=== PATIENT | male | born 1940 | race Caucasian/White ===

== ENCOUNTER 2018-07-22 18:10 | Inpatient (IN) | payer OTHER ==
[~2018-07-22] VITALS: Ht 177.8 cm; Wt 108.9 kg
--- NOTE | ~2018-07-22 | SPIROMETRY ---
[facility] [place] [address] SPIROMETRY Name: ARBOLEDAJUAN M Room #: 212-P [facility] IN .R.#: [id number] ������������������ Admission: 07/22/18 ������������������ Attend Phys: Calvin Marques MD Discharge: 07/30/18 ������������������ Date of : 42 Report #: [id number] THIS REPORT FOR: //name// >> SPIROMETRY: (BTPS) Height: in cm Weight: lbs kg Exam Date: PRE-RX POST-RX PRED BEST %PRED BEST %PRED %CHG FVC LITERS . . . . . . FEV1 LITERS . . . . . . FEV1/FVC % . . . . . . BNW11-86% L/Sec . . . . . . PEF L/SEC . . . . . . FEF50/FIF50 UNITLESS . . . . . . >> INTERPRETATION/IMPRESSION: [facility] DATE OF SERVICE: 07/30/2018 SPIROMETRY: FEV1 is 1.37 liters (50%), FVC is 2.73 (65%), FEV1/FVC is 50%. Postbronchodilator therapy with no significant change. 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 ��������������������������������������������� ���������������������������������������� By: ��������������������������������������������� Mart Bowman MD /nt
--- NOTE | ~2018-07-22 | EKG ---
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
--- NOTE | ~2018-07-22 | SPIROMETRY ---
[facility] [place] [address] SPIROMETRY Name: JUAN ARBOLEDA Room #: 212-P [facility] IN M.R.#: [id number] ������������������ Admission: 07/22/18 ������������������ Attend Phys: Calvin Marques MD Discharge: 07/30/18 ������������������ Date of : 42 Report #: [id number] THIS REPORT FOR: //name// COPIES FOR: >> SPIROMETRY: (BTPS) Height: 70 in cm Weight: 240 lbs kg Exam Date: 07/30/18 PRE-RX POST-RX PRED BEST %PRED BEST %PRED %CHG FVC LITERS . 4.22 . 2.73 . 65 . 2.69 . 64 . -1 FEV1 LITERS . 2.75 . 1.37 . 50 . 1.37 . 50 . 0 FEV1/FVC % . 67 . 50 . 75 . 51 . 76 . 2 JGI33-07% L/Sec . 2.38 . 0.50 . 21 . 0.52 . 22 . 5 PEF L/SEC . 8.06 . 4.36 . 54 . 4.58 . 57 . 5 FEF50/FIF50 UNITLESS . <1.00 . . . . . ��������������������������������������������� ���������������������������������������� By: ��������������������������������������������� Mart Bowman MD /CD
[~2018-07-22 18:10] MED LIST: ACETAMINOPHEN650 M5 PO; ALDACTONE25 MG PO; AMOXICILLIN 25250 M2 PO; ASPIRIN EC81 M1 PO; AUGMENTIN 875-1 EACH PO; BISOPROLOL FUMA10 MG PO; CHLORTHALIDONE25 MG PO; CLONIDINE HCL0.3 M2 PO; COMBIVENT INH; D-20002000 UNIT PO; HYTRIN 5 M5 MG/1 CAP PO; LANTUS SQ; LISINOPRIL40 MG PO; NEXIUM40 MG PO; NOVOLIN R100 UNIT/3 SQ; POTASSIUM20 PO; TOPROL XL25 MG PO; TUMS CHEWA500 MG/11 PO; ZOCOR 20 MG TAB20 M1 PO
[2018-07-22 18:14] VITALS: BP 81/46
[2018-07-22 18:41] LABS: ABSOLUTE NEUTROPHILS 11.3 thou/uL (1.4-8.2); BASOPHILS 0.3 % (0.0-2.0); EOSINOPHILS 0.4 % (0.0-3.0); HEMATOCRIT 53.2 % (42.0-52.0); HEMOGLOBIN 17.7 gm/dL (14.0-18.0); LYMPHOCYTES 13.9 % (24.0-44.0); MCH 29.9 pg (26.0-34.0); MCHC 33.3 g/dL (28.0-37.0); PLATELET COUNT 230 thou/uL (150-400); POLYS 77.4 % (36.0-66.0); RBC 5.91 mil/uL (4.50-6.00); RDW 13.3 % (10.5-14.5); WBC 14.6 thou/uL (4.0-11.0)
[2018-07-22 18:46] LABS: CALCIUM 9.5 mg/dL (8.5-10.1); CREATININE 1.7 mg/dL (0.7-1.3); POTASSIUM 3.6 mmol/L (3.5-5.1)
[2018-07-22 18:54] LABS: TROPONIN-I 0.17 ng/mL (<0.06)
[2018-07-22] MEDS ORDERED: NOVOLIN R100 UNIT/3 SUBQ (18:56)
[2018-07-22] MEDS ORDERED: NOVOLIN R100 UNIT/1 SUBQ (18:57)
[2018-07-22] MEDS ORDERED: FLOMAX0.4 MG PO (18:59)
[2018-07-22 19:45] VITALS: BP 122/64
[2018-07-22 20:00] LABS: CHOLESTEROL 120 mg/dL (<200); HDL CHOLESTEROL 43 mg/dL (>40); LDL CHOLESTEROL 44 mg/dL (<100); TC:HDL 2.8 Ratio (Not establshd); TRIGLYCERIDE 169 mg/dL (<150); VLDL 34 mg/dL (<40)
[2018-07-22 20:01] LABS: SERUM ASSESSMENT Clear
[2018-07-22 21:00] VITALS: BP 133/79
--- NOTE | 2018-07-23 03:35 | NUR ---
ASSESSMENTS CHARTED. ARRIVED ON UNIT FROM ED SHORTLY AFTER SHIFT CHANGE. HAD ARRIVED IN [facility], RECEIVED ONE SHOCK. PATIENT ON AMIODARONE, RECEIVED SUPPLIMENTS OF POTASSIUM AND MAGNESIUM. PLAN OF CARE TO CONTINUE TREATMENTS AND RECEIVE PICC LINE.
[2018-07-23 03:55] LABS: CREATININE 1.4 mg/dL (0.7-1.3); POTASSIUM 3.4 mmol/L (3.5-5.1)
[2018-07-23 04:22] LABS: HEMATOCRIT 47.1 % (42.0-52.0); HEMOGLOBIN 15.9 gm/dL (14.0-18.0); MCHC 33.7 g/dL (28.0-37.0); RBC 5.3 mil/uL (4.50-6.00); RDW 13.2 % (10.5-14.5); WBC 10.2 thou/uL (4.0-11.0)
[2018-07-23 04:33] VITALS: BP 122/62
[2018-07-23 05:05] VITALS: BP 121/70
[2018-07-23 07:08] VITALS: BP 120/67
--- NOTE | 2018-07-23 10:20 | CATHLAB ---
[facility] [place] [address] INVASIVE PROCEDURE REPORT Name: ROBLESJUAN Blake Room #: 212-P [facility] IN ..#: [id number] ������������� Admission: 07/22/18 ������������� Attend Phys: Calvin Borges Discharge: ��� ������������� ��� Date of : 42 Date of Service: 07/23/18 1019 �� Report #: [id number] �������� ��������������������������������������������[id number] THIS REPORT FOR: //name// APPROVED REPORT Study performed: 07/23/2018 07:37:40 Patient Details Patient Status: In-Patient Room #: The patient is a 77 year-old male Event Personnel Ed Johnson Space Systems Operations Craftsman, Philip Bartlett, Rosalba Levine RTR, Christi Lee Tiffany RN bridge painter helper Performed Left Heart Cath Coronaries, Bypass Grafts [id number] CCORCABG KATHRYN Place w/wo Plasty Single CIRC [id number] Indication Chest pain Risk Factors Dysplipidemia , Hypertension, Diabetes Previous Procedures/Diagnoses Previous CABG Procedure Narrative The Right Groin^ was infiltrated with 1% Lidocaine subcutaneous anesthesia. A PINNACLE 6FR Sheath #[id number] sheath was inserted into the RFA^. Coronary angiography was performed using coronary diagnostic catheters. The right coronary system was accessed and visualized with a JR4 catheter. The left coronary system was accessed and visualized with a JL4 catheter. The left ventricle was accessed and visualized with a PIGTAIL catheter. Left ventriculogram was performed in WAN projection. Closure device was deployed with a Fr MYNXGRIP 6/7F #[id number]. Hemostasis was obtained with manual pressure following sheath removal without any complications. The patient tolerated the procedure well and there were no complications associated with the procedure. There was no hematoma. Intraoperative Conscious Sedation Sedation start time: 746 Case end Time: [facility] [address] [place] [address] INVASIVE PROCEDURE REPORT Name: JUAN ARBOLEDA Room #: 212-P [facility] IN [facility]#: [id number] ������������� Admission: 07/22/18 ������������� Attend Phys: Calvin Borges Discharge: ��� ������������� ��� Date of : 42 Date of Service: 07/23/18 1019 �� Report #: [id number] �������� ��������������������������������������������[id number] Fentanyl 50 mcg Versed 1 mg Fluoro Time: 20.00 minutes Dose: DAP 41301.30 cGycm2 3070 mGy Contrast Type and Amount: Visipaque 305 ml Diagnostic Cath Left Main Mild distal left main plaquing LAD Occluded proximal LAD Widely patent and angiographically normal left internal mammary to the midportion of the LAD. Excellent runoff into a large LAD system. Diagonal 1 Widely patent sequential saphenous vein graft to a high diagonal branch then OM1, OM2, and OM3 Circumflex Severe calcific 95% proximal stenosis feeding a single mid-distal marginal branch OM1 Relatively small first and second marginal branches OM3 Third marginal branch was moderately large There was severe proximal disease in the marginal vessel not allowing retrograde perfusion of the terminal marginal branch Right Coronary Proximal right coronary artery occlusion Patent vein graft to the distal right coronary, posterior descending and posterolateral branches R PDA Moderate-sized posterior descending with mild plaquing RPLV Posterior lateral branch with mild plaquing Left Ventriculography The left ventricle is mildly dilated in size with abnormal contractility. The left ventricular ejection fraction is estimated to be 40-45%. Left ventricular wall motion abnormalities are present. There is no mitral insufficiency. Severe dysfunction involving the base and mid portions of the inferior wall Hemodynamics The aortic pressure is 122/52 mmHg with a mean of 78 mmHg. The left ventricular pressure is 120/13 mmHg with a mean of mmHg. The left ventricular end diastolic pressure is 18 mmHg. PCI Technique Lesion Anticoagulation was achieved with Heparin, Integrilin. Patient was preloaded with Plavix. Percutaneous coronary intervention was performed on the proximal circumflex artery segment. The lesion stenosis prior to intervention was 99% with JIL 3 flow. A LAUNCHER 6FR EBU 3.5 #[id number] Guide Catheter was used to engage the ostium. A [facility] [place] [address] INVASIVE PROCEDURE REPORT Name: JUAN ARBOLEDA Room #: 212-P [facility] IN M.R.#: [id number] ������������� Admission: 07/22/18 ������������� Attend Phys: Calvin Borges Discharge: ��� ������������� ��� Date of : 42 Date of Service: 07/23/18 1019 �� Report #: [id number] �������� ��������������������������������������������[id number] Luge Wire .014 x 182CM #[id number] Interventional Guidewire was used to cross the lesion. BALLOON DILATION A Balloon catheter Euphora RX 2.0 x 15 #[id number] was inserted and inflated up to 18.00atm for 62seconds. Repeat angiography revealed the following post-dilatation results: moderate residual stenosis. Initially the 3.5 mm balloon would not traverse the bulky stenosis. Sequentially larger balloons were used until ultimately the stent could be deployed A 3.5 X 12 Euphora was deployed for 5 sec @ 8 tiffany; balloon popped. A third balloon, NC-Trek, 3.5 x 15, was deployed for 32 sec @ 12 tiffany. STENT DEPLOYMENT A drug-eluting stent RESOLUTE RICKEY RX 3.5 X 15 #[id number] was inserted and inflated up to 21.00atm for 27seconds. Repeat angiography revealed the following post-stent deployment results: The same 3.5 x 15 mm NC balloon use used to post dilate the stent. Additional Inflation: 16atm for 46seconds. POST STENT DEPLOYMENT BALLOON DILATION A Balloon catheter TREK NC RX 3.5 X 15 #[id number] was inserted and inflated up to 21.00atm for 27seconds. Final angiography reveals 0 % stenosis with JIL 3 flow. Conclusion 1. Moderate left ventricular dysfunction with inferior wall hypokinesis. Ejection fraction 40-45% 2. Severe multivessel coronary disease 3. Patent sequential SVG to Diag1, OM1, OM2, and OM3 4. Patent sequential SVG to PDA and PL branches 5. Patent REESE to LAD 6. Severe proximal Cx disease feeding incompletely protected distal OM branch, Cx stented wtih 3.5 x 15 Resolute KATHRYN. Recommendations Daily ASA with Plavix for at least one year Cardiac Rehabilitation Referral Aggressive Medical Therapy Medications Administered ÓSCAR Inhibitor (any) Aspirin (any) Beta Elsie (any) [facility] [address] [place] [address] INVASIVE PROCEDURE REPORT Name: JUAN ARBOLEDA Room #: 212-P ADM IN M.R.#: [id number] ������������� Admission: 07/22/18 ������������� Attend Phys: Calvin Borges Discharge: ��� ������������� ��� Date of : 42 Date of Service: 07/23/18 1019 �� Report #: [id number] �������� ��������������������������������������������[id number] Statin (any) Clopidogrel ��������������������������������������������� <ELECTRONICALLY SIGNED> ���������������������������������������� By: Ed Johnson MD, FACC ��������������������������������������������� 07/23/18 1019 1019 1019 Ed Johnson MD, FACC /INF
--- NOTE | 2018-07-23 12:34 | NUR ---
CHECKED ON PT THIS AM AND HE WAS GONE FROM THE ROOM, CALLED HIS NURSE TO SEE IF THE PT WOULD STILL BE NEEDING A PICC FOR AMIODERONE. SHE IS CALLING THE MD TO CLARIFY.
--- NOTE | 2018-07-23 13:00 | 2DMMODE ---
[facility] [address] [address] 2 D/M-MODE ECHOCARDIOGRAM Name: JUAN ARBOLEDA Room #: 212-P ADM IN M.R.#: [id number] ������������� Admission: 07/22/18 ������������� Attend Phys: Calvin Borges Discharge: ��� ������������� ��� Date of : 42 Date of Service: 07/23/18 1300 �� Report #: [id number] �������� ��������������������������������������������[id number] THIS REPORT FOR: //name// APPROVED REPORT Study performed: 07/23/2018 10:24:07 EXAM: Comprehensive 2D, Doppler, and color-flow Echocardiogram Patient Location: Bedside Room #: 212 Status: routine BSA: 2.26 HR: 66 bpm BP: 120/67 mmHg Rhythm: Irregular Other Information Study Quality: Adequate Indications V-Tach. Status post PCI. Hx: CABG, ISCM, DM, HTN, HLP. 2D Dimensions RVDd: 38.17 mm IVSd: 10.10 (7-11mm) LVOT Diam: 22.35 (18-24mm) LVDd: 60.38 mm PWd: 9.79 (7-11mm) Ascending Ao: 36.62 (22-36mm) LVDs: 47.14 (25-40mm) Aortic Root: 37.73 mm Volumes Left Atrial Volume (Systole) Single Plane 4CH: 92.02 mL Single Plane 2CH: 82.52 mL LA ESV Index: 41.00 mL/m2 Aortic Valve AoV Peak Abiel.: 1.46 m/s AO Peak Gr.: 8.49 mmHg LVOT Max P.11 mmHg LVOT Max V: 1.01 m/s CHLOÉ Vmax: 2.73 cm2 Mitral Valve E/A Ratio: 0.8 MV Decel. Time: 184.99 ms MV E Max Abiel.: 0.88 m/s [facility] [place] [address] [place] [address] 2 D/M-MODE ECHOCARDIOGRAM Name: JUAN ARBOLEDA Room #: 212-P [facility] IN .R.#: [id number] ������������� Admission: 07/22/18 ������������� Attend Phys: Calvin Borges Discharge: ��� ������������� ��� Date of : 42 Date of Service: 07/23/18 1300 �� Report #: [id number] �������� ��������������������������������������������[id number] MV A Abiel.: 1.13 m/s MV PHT: 53.65 ms IVRT: 89.97 ms Pulmonary Valve PV Peak Abiel.: 1.33 m/s PV Peak Gr.: 7.05 mmHg Pulmonary Vein P Vein S: 0.47 m/s P Vein D: 0.30 m/s P Vein S/D Ratio: 1.57 Tricuspid Valve TR Peak Abiel.: 2.31 m/s RAP Estimate: 5.00 mmHg TR Peak Gr.: 21.33 mmHg PA Pressure: 26.00 mmHg Left Ventricle Left ventricle is mildly dilated. Moderate basal septal hypertrophy is present. Left ventricular systolic function is moderately decreased. Hypokinesis base of inferior wall and inferoseptum. LVEF is 35-40%. Mild diastolic dysfunction is present (impaired relaxation pattern). Right Ventricle The right ventricle is normal size. Right ventricle is mildly hypokinetic. Atria Left atrium is dilated. Right atrium is dilated. Aortic Valve The aortic valve is mildly calcified. No aortic regurgitation is present. There is no aortic valvular stenosis. Mitral Valve Mild mitral annular calcification. Mild mitral regurgitation. No evidence of mitral valve stenosis. Tricuspid Valve The tricuspid valve is normal in structure. Trace tricuspid regurgitation. Estimated PAP is 25-30mmHg. Pulmonic Valve Pulmonic valve is not well visualized. There is no pulmonic valvular regurgitation. [address] [address] 2 D/M-MODE ECHOCARDIOGRAM Name: JUAN ARBOLEDA Room #: 212-P [facility] IN M.R.#: [id number] ������������� Admission: 07/22/18 ������������� Attend Phys: Calvin Borges Discharge: ��� ������������� ��� Date of : 42 Date of Service: 07/23/18 1300 �� Report #: [id number] �������� ��������������������������������������������[id number] Great Vessels Aortic root measures at the upper limits of normal. The ascending aorta is normal in size. IVC is normal in size and collapses >50% with inspiration. Pericardium There is no pericardial effusion. <Conclusion> Left ventricular systolic function is moderately decreased. Hypokinesis base of inferior wall and inferoseptum. LVEF is 35-40%. Mild diastolic dysfunction Both atria are dilated. The aortic valve is mildly calcified. No aortic regurgitation or stenosis Mild mitral annular calcification. Mild mitral regurgitation. Trace tricuspid regurgitation. Estimated pulmonary artery pressure of 25-30mmHg. There is no pericardial effusion. ��������������������������������������������� <ELECTRONICALLY SIGNED> ���������������������������������������� By: Ed Johnson MD, FACC ��������������������������������������������� 07/23/18 1300 1300 1300 Ed Johnson MD, FACC /INF
[2018-07-23 15:03] LABS: MAGNESIUM 1.6 mg/dL (1.8-2.4); POTASSIUM 4.1 mmol/L (3.5-5.1)
[2018-07-23 15:58] VITALS: BP 132/77
--- NOTE | 2018-07-23 16:30 | NUR ---
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 MEDS PER MAY - NO CO'S OF PAIN OR NAUSEA - ALBERTINA DIET AND FLUIDS. PT GROIN AND VSS POST PROCEDURE. HAS BEEN UP TO THE BATHROM - GROIN HAS BEEN STABLE. AMMIO CONTINUES TO INFUSE AND PO AMMIO TO BE GIVEN K+ REPLACED NORMAL WITH REDRAW - MAG LOW AT 1.6 WILL SUPPLEMENT PER PROTOCOL. PT TO HAVE PACER AND ICD PLACED ON SUNDAY. SEEN BY DOCTOR LAURENT TODAY. NO CO'S AT THE PRESENT TIME - FAMILY AT BEDSIDE.
--- NOTE | 2018-07-23 17:04 | EKG ---
[address] [place] [address] ELECTROCARDIOGRAM REPORT Name: ROBLESJUAN Hayden Room #: 212-P ADM IN M.R.#: [id number] ������������������ Admission: 07/22/18 ������������������ Attend Phys: Calvin Marques Discharge: ������������������ Date of : 42 Report #: [id number] ����������������������������������������������������������������� [id number] THIS REPORT FOR: //name// [facility] ED Test Date: 2018-07-22 Test Time: 18:22:05 Pat Name: JUAN ARBOLEDA Department: Room: [facility] Gender: M Montessori Paraprofessional: ARASELI : 1940 Requested By: Rohith Smith Order Number: [id number] MD: Ed Johnson Measurements Intervals [place] Rate: 212 P: 123 [place]: 100 QRS: -41 QRSD: 153 T: 135 QT: 268 QTc: 504 Interpretive Statements Ventricular tachycardia Compared to ECG 12/13/2010 11:04:22 Sinus rhythm no longer present Electronically Signed On 07-23-2018 17:04:00 CDT by Ed Johnson [email or web address] ��������������������������������������������� <ELECTRONICALLY SIGNED> ���������������������������������������� By: Ed Johnson MD, [facility] ��������������������������������������������� 07/23/18 1704 21 21 Ed Johnson MD, FAC /EPI
--- NOTE | 2018-07-23 17:05 | EKG ---
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 : 1940 Requested By: Rohith Smith Order Number: [id number] MD: Ed Johnson Measurements Intervals [place] Rate: 96 P: 136 [place]: 182 QRS: -143 QRSD: 179 T: 37 QT: 460 QTc: 582 Interpretive Statements Sinus or ectopic atrial rhythm Multiple ventricular premature complexes Inferior infarct, old Right bundle branch block ST depr, consider ischemia, anterolateral lds Compared to ECG 12/13/2010 11:04:22 ventricular tachycardia no longer present Electronically Signed On 07-23-2018 17:04:53 CDT by Ed Johnson [email or web address] ��������������������������������������������� <ELECTRONICALLY SIGNED> ���������������������������������������� By: Ed Johnson MD, [facility] ��������������������������������������������� 07/23/18 1704 1845 1845 Ed Johnson MD, [facility] /EPI
--- NOTE | 2018-07-23 17:10 | EKG ---
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 : 1940 Requested By: Ed Johnson Order Number: [id number] MD: Ed Johnson Measurements Intervals [place] Rate: 70 P: 80 [place]: 240 QRS: -105 QRSD: 170 T: 26 QT: 459 QTc: 496 Interpretive Statements Sinus rhythm Multiple ventricular premature complexes Prolonged [place] interval Right bundle branch block Inferior infarct, old Compared to ECG 12/13/2010 11:04:22 ST and T wave abnormality less pronounced Electronically Signed On 07-23-2018 17:10:24 CDT by Ed Johnson [email or web address] ��������������������������������������������� <ELECTRONICALLY SIGNED> ���������������������������������������� By: Ed Johnson MD, [facility] ��������������������������������������������� 07/23/18 1710 0740 0740 Ed Johnson MD, [facility] /EPI
--- NOTE | 2018-07-23 17:13 | EKG ---
[address] [place] [address] ELECTROCARDIOGRAM REPORT Name: JUAN ARBOLEDA Hayden Room #: 212- ADM IN M.R.#: [id number] ������������������ Admission: 07/22/18 ������������������ Attend Phys: Calvin Marques Discharge: ������������������ Date of : 42 Report #: [id number] ����������������������������������������������������������������� [id number] THIS REPORT FOR: //name// [facility] Test Date: 2018-07-23 Test Time: 10:20:53 Pat Name: JUAN ARBOLEDA Department: Room: 212 P Gender: M Public Health Worker: Sasha MAYORGA : 1940 Requested By: Ed Johnson Order Number: [id number] MD: Ed Johnson Measurements Intervals [place] Rate: 69 P: 64 [place]: 240 QRS: -91 QRSD: 171 T: 30 QT: 505 QTc: 541 Interpretive Statements Sinus rhythm Prolonged [place] interval Right bundle branch block Inferior infarct, old Compared to ECG 12/13/2010 11:04:22 Premature ventricular complexes no longer present Electronically Signed On 07-23-2018 17:13:44 CDT by Ed Johnson [email or web address] ��������������������������������������������� <ELECTRONICALLY SIGNED> ���������������������������������������� By: Ed Johnson MD, [facility] ��������������������������������������������� 07/23/18 1713 1020 1020 Ed Johnson MD, [facility] /EPI
[2018-07-23 20:35] VITALS: BP 113/62
[2018-07-23 23:05] LABS: GLYCOHEMOGLOBIN (HGB A1C) 8.2 % (4.8-5.6)
[2018-07-24 00:47] VITALS: BP 128/53
--- NOTE | 2018-07-24 01:22 | NUR ---
ASSESSMENTS CHARTED. SPOKE WITH DR. HERRERA WHO WANTED THE AMIODARONE TO CONTINUE PAST THE NORMAL 18 HOUR RUN TIME. NEW ORDER PLACED. PATIENT WAS IN THE UNSTACKER TODAY AND RECEIVED A STENT TO THE CIRC. ACCESS SITE IS CLEAN DRY INTACT AND SOFT. PLAN OF CARE TO RECEIVE PACEMAKER ON SUNDAY.
[2018-07-24 04:25] LABS: HEMATOCRIT 44.4 % (42.0-52.0); HEMOGLOBIN 14.8 gm/dL (14.0-18.0); MCH 29.8 pg (26.0-34.0); MCHC 33.3 g/dL (28.0-37.0); MCV 89.6 fL (80.0-100.0); RBC 4.96 mil/uL (4.50-6.00); RDW 13.5 % (10.5-14.5); WBC 9.1 thou/uL (4.0-11.0)
[2018-07-24 04:44] LABS: ALBUMIN 2.9 g/dL (3.4-5.0); CALCIUM 8.2 mg/dL (8.5-10.1); CREATININE 1.2 mg/dL (0.7-1.3); MAGNESIUM 1.7 mg/dL (1.8-2.4); POTASSIUM 3.9 mmol/L (3.5-5.1); TOTAL BILIRUBIN 0.9 mg/dL (<0.1-1.0); TOTAL PROTEIN 5.8 g/dL (6.4-8.2)
[2018-07-24 04:47] LABS: TROPONIN-I 14.55 ng/mL (<0.06)
[2018-07-24 05:33] VITALS: BP 120/57
[2018-07-24 07:27] VITALS: BP 125/62
[2018-07-24 11:53] VITALS: BP 106/44
[2018-07-24 16:14] VITALS: BP 110/56
--- NOTE | 2018-07-24 18:04 | NUR ---
ASSESSMENT CHARTED - MEDS PER MAR - NO CO'S OF PAIN OR NAUSEA. ALBERTINA DIET AND FLUIDS. ACCUCHECKS CHARTED - COVERED PER SSI. PT AMBULATED IN THE HALLS TODAY - ON ROOM AIR WITH AMBULATION PT DROPPED TO 88% PLACE ON 2 L AND SAT WAS 95% PT TO HAVE PACER/ICD PLACED TOMORROW - PERMIT SIGNED - TO HAVE HIBICLENS SHOWER THIS EVENING. ARM ON RIGHT SLIGHLY SORE FROM WHERE AMIO WAS INFUSING - PLACED WARM AND THEN COOL COMPRESS ON AREA AND PATIENT STATES IT FEELS MUCH BETTER. NO CO'S AT THE PRESENT TIME.
[2018-07-24 19:35] VITALS: BP 102/60
[2018-07-25 04:14] LABS: ALBUMIN 2.8 g/dL (3.4-5.0); CALCIUM 8.4 mg/dL (8.5-10.1); CREATININE 1.2 mg/dL (0.7-1.3); POTASSIUM 3.8 mmol/L (3.5-5.1); TOTAL BILIRUBIN 1.3 mg/dL (<0.1-1.0); TOTAL PROTEIN 5.8 g/dL (6.4-8.2)
[2018-07-25 04:20] VITALS: BP 126/69
--- NOTE | 2018-07-25 04:22 | NUR ---
ASSUMED PT CARE AT 1899. VSS. PT A&0X4. AT AROUND 2054, PT WENT INTO SUSTAINED VTACH, HE WAS A&0 [place] IT WITH JUST COMPLAINTS OF DIZZYNESS. SCHEDULED PO AMIODARONE GIVEN AT 2107, DIRECTOR IMAGING NOTIFED; CALL DEFERED TO CARDIOLOGY, DR HERRERA WAS ON THE FLOOR AT THIS TIME SO HE SAW PT, GAVE ORDERS FOR 300MG IV AMIO, THEN ANOTHER 150MG AMIO AT 2131. 2MG OF VERSED GIVEN AT 2144, 200J SHOCK ADMINISTERED AT 2146, PT CONVERTED TO SR. AMIO DRIP STARTED AT APPROX 2129 AT 33ML/HR THEN TITRATED DOWN TO 16.7ML/HR AFTER 6 HOURS (AT 0330 AM). NS RUNNING AT 125ML/HR. NEW IV PLACED IN R HAND. PT IS TABLE, NO COMPLAINTS OF PAIN, OR DIZZINESS, HE IS SR ON THE MONITOR, HAS BEEN NPO SINCE MIDNIGHT FOR ICD PLACEMENT TODAY. WILL CONTINUE TO MONITOR PER POC.
[2018-07-25 04:24] LABS: ABSOLUTE NEUTROPHILS 9.6 thou/uL (1.4-8.2); BASOPHILS 0.2 % (0.0-2.0); HEMATOCRIT 43.3 % (42.0-52.0); HEMOGLOBIN 14.3 gm/dL (14.0-18.0); LYMPHOCYTES 11.9 % (24.0-44.0); MCH 29.6 pg (26.0-34.0); MCV 89.7 fL (80.0-100.0); MONOCYTES 9.1 % (1.0-8.0); PLATELET COUNT 170 thou/uL (150-400); POLYS 77.8 % (36.0-66.0); RBC 4.83 mil/uL (4.50-6.00); RDW 13.4 % (10.5-14.5); WBC 12.3 thou/uL (4.0-11.0)
[2018-07-25 07:25] VITALS: BP 134/60
--- NOTE | 2018-07-25 08:15 | HC ---
[facility] [place] [address] CONSULTATION Name: JUAN ARBOLEDA Room #: 212-P ADM IN M.R.#: [id number] Admission: 07/22/18 ������������������ Attend Phys: Calvin Marques Discharge: ������������������ Date of : 42 Report #: [id number] THIS REPORT FOR: //name// CC: Ed Atkins REASON FOR CONSULTATION: Syncope, palpitations. HISTORY OF PRESENT ILLNESS: The patient is a 77-year-old gentleman with 7-vessel bypass surgery at [facility] in 2006. He has a history of prior myocardial infarction around the time of his bypass. He did have several stenting procedures leading up to the bypass, although he has had nothing since. Today after taking a nap, he got up and felt very lightheaded. He checked his blood sugar, which was 67. He ate several peanut butter sandwiches, although his palpitations and near syncope persisted. His drove him to the Emergency Department where he was found to be in a wide complex monomorphic tachycardia consistent with ventricular tachycardia. He was shocky with an initial blood pressure of 80/76 with associated diaphoresis and breathlessness. He was given Versed and underwent urgent defibrillation. He currently is awake, alert and feels much better. He denies symptoms similar to this previously. No chest heaviness, pressure or ischemic type symptoms. He reports no recent imaging or stress testing. He does follow through [facility]. Blood pressure and blood sugar readings have been reasonably well controlled. No issues or problems related to his pharmacologic regimen. No recent medicine changes. Of particular note, he was hospitalized at [facility] several days ago with a small-bowel obstruction. A CAT scan suggested an abdominal wall hernia responsible for the bowel obstruction. Surgical therapy was not discussed. He was told of having "abnormal enzymes." He did not see a wire rigger at that time. Further details are unclear, records have been requested. ALLERGIES: HE IS ALLERGIC TO NIASPAN, METOPROLOL GAVE HIM TERRIBLE DREAMS. MEDICATIONS: Include chlorthalidone 25 mg daily, omeprazole 40 mg daily, insulin, potassium 20 mEq daily, Zocor 20 mg daily, Flomax 0.4 mg daily. PAST MEDICAL HISTORY: His past history and medical records have been reviewed and include a history of diverticulitis with hemicolectomy and colostomy formation and then takedown colostomy with reattachment, bypass surgery 7-vessel in 2006, hypertension, diabetes, dyslipidemia. SOCIAL HISTORY: He is a former smoker, he quit 20 years ago. He is a former drinker, not recently. He is . FAMILY HISTORY: Notable for mother with premature coronary artery disease. Multiple siblings with diabetes. [address] [address] CONSULTATION Name: JUAN ARBOLEDA Room #: 212-P [facility] IN M.R.#: [id number] Admission: 07/22/18 ������������������ Attend Phys: Calvin Marques Discharge: ������������������ Date of : 41 Report #: [id number] REVIEW OF SYSTEMS: All systems negative except as that noted above. PHYSICAL EXAMINATION: GENERAL: Reveals a pleasant gentleman who is alert, in no distress. VITAL SIGNS: Blood pressure is 122/64, heart rate of 90 and regular. He is afebrile, 5 feet 10 inches tall, 242 pounds. HEENT: There are neither xanthelasma, subcutaneous xanthomata, oral mucosal or digital cyanosis or kyphoscoliosis present. CHEST: Clear to auscultation and percussion. CARDIOVASCULAR: Regular rate and rhythm with normal S1, S2. Heart sounds are distant. ABDOMEN: Soft, obese, nontender. EXTREMITIES: Without cyanosis, clubbing or edema. Radial pulses are 2+. NEUROLOGIC: He is alert with a nonfocal exam. LABORATORY DATA: Sodium 140, potassium 3.6, creatinine 1.7, glucose 303. Troponin 0.17. White count 14.6, hemoglobin 17, hematocrit 53 and platelet count 230. Chest x-ray, minor atelectasis at the right base, cardiomegaly. EKG, monomorphic ventricular tachycardia, post-cardioversion sinus rhythm with first degree AV block, right bundle branch block and prior inferior infarct. IMPRESSION: 1. Sustained monomorphic ventricular tachycardia with collapse, requiring urgent cardioversion. 2. Ischemic cardiomyopathy. 3. Recent small-bowel obstruction; abdominal wall hernia. 4. Dyslipidemia. 5. Coronary artery disease with remote 7-vessel bypass. 6. Hypertension. 7. Diabetes. 8. Chronic kidney disease; nephropathy. RECOMMENDATIONS: 1. Intravenous amiodarone. 2. Supplement potassium and magnesium. 3. Coronary angiography. This procedure was discussed in detail including its associated risks. 4. Echocardiogram with Doppler. 5. EP evaluation and ICD placement for monomorphic VT, likely related to prior infarct and scar. I have discussed these issues with the patient and family and the Emergency Department staff. Care has been coordinated. [facility] [address] [place] [address] CONSULTATION Name: JUAN ARBOLEDA Room #: 212-P ADM IN M.R.#: [id number] Admission: 07/22/18 ������������������ Attend Phys: Calvin Marques Discharge: ������������������ Date of : 41 Report #: [id number] Critical care time 18:22 to 19:52; 90 minutes. ��������������������������������������������� <ELECTRONICALLY SIGNED> ���������������������������������������� By: Ed Johnson MD, FACC ��������������������������������������������� 07/25/18 0815 01 1231 Ed Johnson MD, FACC /nt
--- NOTE | 2018-07-25 09:34 | EKG ---
[place] [address] [facility] [employer] [place] [address] ELECTROCARDIOGRAM REPORT Name: ROBLESJUAN Hayden Room #: 212-P ADM IN M.R.#: [id number] ������������������ Admission: 07/22/18 ������������������ Attend Phys: Calvin Marques Discharge: ������������������ Date of : 41 Report #: [id number] ����������������������������������������������������������������� [id number] THIS REPORT FOR: //name// [facility] Test Date: 2018-07-24 Test Time: 07:25:25 Pat Name: JUAN ARBOLEDA Department: Room: 212 P Gender: M 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 : 1940 Requested By: Ed Johnson Order Number: [id number] MD: Ed Johnson Measurements Intervals [place] Rate: 70 P: 51 WA: 245 QRS: -86 QRSD: 174 T: 11 QT: 477 QTc: 515 Interpretive Statements Sinus rhythm Prolonged [place] interval Right bundle branch block Inferior infarct, old Compared to ECG 07/23/2018 10:20:53 No significant change was found Electronically Signed On 07-25-2018 9:34:36 CDT by Ed Johnson [email or web address] ��������������������������������������������� <ELECTRONICALLY SIGNED> ���������������������������������������� By: Ed Johnson MD, [facility] ��������������������������������������������� 07/25/18 0934 4 4 Ed Johnson MD, [facility] /EPI
--- NOTE | 2018-07-25 09:46 | EKG ---
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 Per Diem: Hayden VIRK : 1940 Requested By: Jacinto Vaughan Order Number: [id number] MD: Ed Johnson Measurements Intervals [place] Rate: 58 P: 51 WA: 280 QRS: -85 QRSD: 177 T: -1 QT: 516 QTc: 507 Interpretive Statements Sinus rhythm Prolonged [place] interval Right bundle branch block Inferior infarct, old Compared to ECG 07/23/2018 10:20:53 No significant change was found Electronically Signed On 07-25-2018 9:45:47 CDT by Ed Johnson [email or web address] ��������������������������������������������� <ELECTRONICALLY SIGNED> ���������������������������������������� By: Ed Johnson MD, [facility] ��������������������������������������������� 07/25/18 0945 01 01 Ed Johnson MD, [facility] /EPI
--- NOTE | 2018-07-25 09:52 | EKG ---
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: ADRIEL : 1940 Requested By: Ed Johnson Order Number: [id number] MD: Ed Johnson Measurements Intervals [place] Rate: 70 P: 55 CA: 292 QRS: -75 QRSD: 181 T: 21 QT: 479 QTc: 517 Interpretive Statements Sinus rhythm Prolonged [place] interval Inferior infarct, old Right bundle branch block Compared to ECG 07/23/2018 10:20:53 No significant change was found Electronically Signed On 07-25-2018 9:51:58 CDT by Ed Johnson [email or web address] ��������������������������������������������� <ELECTRONICALLY SIGNED> ���������������������������������������� By: Ed Johnson MD, [facility] ��������������������������������������������� 07/25/18 0951 4 4 Ed Johnson MD, [facility] /EPI
--- NOTE | 2018-07-25 10:52 | NUR ---
#14FR INDWELLING ARMANDO CATH PLACED W/O DIFF W IMMED RETURN YELLOW URINE. PT ALBERTINA WELL. SECURED TO LEG. UNABLE TO PLACE #16FR WHEN ATTEMPTED FIRST. PT STATES HE HAS NO IDEA ABOUT HIS PROSTATE (? ENLARGED).--VW
[2018-07-25 11:30] VITALS: BP 190/65
--- NOTE | 2018-07-25 11:39 | NUR ---
VASCULAR ACCESS TEAM CONSULTED FOR PICC PLACEMENT. PT'S LABS,MEDS,HISTORY ORDER AND CONSENT VERIFIED. DISCUSSED BENEFITS AND RISKS WITH PT,VERBALIZED UNDERSTANDING. PT WAS PREPPED AND DRAPED FOR MAX BARRIER PRECAUTIONS. KRISTINA BASILIC WAS WIDELY PATENT WITH USG,1% LIDOCAINE GIVEN SQ. 5FR DL POWER PICC TRIMMED TO 45CM INSERTED TO 0CM. PICC SECURED. STAT CXR ORDERED.
--- NOTE | 2018-07-25 12:56 | NUR ---
Cm assessment completed with the pt yesterday at bedside. He was a&ox4 and lives independently with his . He has steps inside his home to the bedroom and the basement. He drives short distances. His pcp is listed as Dr. Crenshaw but he normally just sees his managed care nurse Dr. Mitchell. He has a cane at home. No other dme in place. Pt is on O2 at this time. CM role introduced. Will follow along should home o2 be indicated.
--- NOTE | 2018-07-25 13:22 | NUR ---
picc released for immediate use per protocol to rosendo GREGORIO. cxr confirmed placement
[2018-07-25 15:30] VITALS: BP 150/61
--- NOTE | 2018-07-25 16:51 | NUR ---
ASSESSMENT CHARTED - DR MCCALL TO SEE PATIENT THIS AM - D/C FLUIDS - PICC LINE TO BE INSERTED FOR AMIO DRIP - LAB ORDERED - IV LASIX GIVEN - PT HAD ARMANDO PLACED ORDERED - UNABLE TO INSERT 16 0R 18 ABLE TO INSERT 14 WELSH - ARMANDO PATENT AND DRAINING. PT SLEEPY THIS AM EASILY AWOKEN - PT TAKEN TO EP THIS AND HAD PACER AND ICD PLACED - VSS POST PROCEDURE - PT AWAKE - ALBERTINA DIET AND FLUIDS - AMMIO INFUSING PER PICC - NO CO'S OF PAIN OR NAUSEA. INCISION C/D/I. NO CO'S AT THE PRESENT TIME.
[2018-07-25 20:32] VITALS: BP 147/56
[2018-07-26] VITALS (7 sets, daily range): BP systolic 113–138; BP diastolic 51–67
--- NOTE | 2018-07-26 05:30 | NUR ---
ASSUMED PT CARE AT 1900. VSS. PT A&0X4. DENIES PAIN, NAUSEA OR ANY FORM OF DISCOMFORT. PT WAS SR ALL NIGHT ON THE MONITOR. HE SLEPT WELL OVER NIGHT, HE INITIALLY STATED BEING SCARED OF THE EFFECTS OF THE ICD AND SCARED THAT [facility]. SOME EDUCATION WAS GIVEN TO HIM BY MYSELF AND I TOLD HIM THAT THE CARDIAC REHAB NURSE WOULD VISIT WITH HIM THIS AM AND GIVE HIM MORE EDUCATION. PT WAS REASSURED, HE IS STABLE, CALM, FOR NOW, WILL CONTINUE TO MONITOR PER POC.
--- NOTE | 2018-07-26 08:11 | NUR ---
PT OFF UNIT TO [facility].
--- NOTE | 2018-07-26 08:22 | EKG ---
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 : 1940 Requested By: Ed Johnson Order Number: [id number] MD: Erlin Licea Measurements Intervals [place] Rate: 62 P: 76 IL: 261 QRS: -83 QRSD: 183 T: 53 QT: 540 QTc: 549 Interpretive Statements Sinus rhythm Prolonged [place] interval Right bundle branch block Compared to ECG 07/25/2018 07:25:45 Myocardial infarct finding no longer present Electronically Signed On 07-26-2018 8:22:09 CDT by Erlin Licea [email or web address] ��������������������������������������������� <ELECTRONICALLY SIGNED> ���������������������������������������� By: Erlin Licea MD ��������������������������������������������� [address]4821 8 8 Erlin Licea MD /KUMAR
--- NOTE | 2018-07-26 08:32 | NUR ---
PT RETURN FROM [facility]
--- NOTE | 2018-07-26 16:49 | NUR ---
No discharge anticipated this weekend. Pt getting iv amino with transition to oral over the weekend. Earliest dc is anticipated for Sunday. Weaning o2. will follow along should he need home o2 arranged at dc.
--- NOTE | 2018-07-26 18:38 | NUR ---
NOTICED PT'S RIGHT ARM A BIT SWOLLEN AND PT STATED THAT IT ACHED SOME WHAT. CONTACT DR. ROSARIO TO INFORM OF THIS FINDING AND INSTRUCTED TO DISCONTINUE PICC LINE RIGHT UPPER EXTREMITY. PT WAS ABLE TO HAVE BM TODAY AND WORKED WITH PT/OT. WILL CONTININUE TO ASSESS.
--- NOTE | 2018-07-27 04:16 | NUR ---
PT ALERT AND ORIENTED. DENIES PAIN, NAUSEA, VOMITING OR DIARRHEA. HAD 2 BMs DURING THE SHIFT. RIGHT UA PICC PULLED DURING THE DAY. RIGHT ARM STILL APPEAR SHOLLEN AND REDISH. OTHERWISE DENIES PAIN. ON 3L O2, SATS > 90. NEW IVs START, LAC AND LEFT HAND. PT ON PO AND IV AMIO. PLAN TO TRANSITION TODAY TO COMPLETE PO AMIO. NO EPISODES OF VTACH. SENIOR SALES CONSULTANT FOLLOWING WITH DC PLANS. WILL CONTINUE TO FOLLOW POC.
[2018-07-27 04:55] VITALS: BP 155/63
[2018-07-27 05:05] LABS: MAGNESIUM 1.7 mg/dL (1.8-2.4); POTASSIUM 3.1 mmol/L (3.5-5.1)
[2018-07-27 07:20] VITALS: BP 116/48
[2018-07-27 11:30] VITALS: BP 143/58
[2018-07-27 15:50] VITALS: BP 147/65
--- NOTE | 2018-07-27 18:15 | NUR ---
ASSUMED CARE OF PT AT 0645. ALBERTINA PACER. KEEP ON AMIO IV AND PO PER CARDIOLOGY. INCREASE COREG. FAMMILY AT BEDSIDE. NEEDS TO BE REMINDED TO KEEP LEFT ARM DOWN. SHOULD WEAR IMMOBILIZER HS. HELD AC INSULIN AT DINNER DUE TO LOW BG. PROGRESSING TOWARD PLAN OF CARE.
[2018-07-27 20:42] VITALS: BP 149/73
[2018-07-28 04:12] VITALS: BP 163/83
[2018-07-28 04:19] LABS: CALCIUM 8.8 mg/dL (8.5-10.1); POTASSIUM 3.1 mmol/L (3.5-5.1)
--- NOTE | 2018-07-28 05:53 | NUR ---
PT A0 X4. ON AMIO DRIP, NO EPISODE OF VTACH RECORDED RATE CONTOLLED. APACED. ICD/PACER PLACED ON THE . SITE CLEAN DRY AND INTACT. PT REPORTS APNEA EPISODES. WOULD LIKE TO TRY CPAP. WILL CONTINUE TO FOLLOW POC.
[2018-07-28 07:53] VITALS: BP 159/83
[2018-07-28 11:50] VITALS: BP 157/81
--- NOTE | 2018-07-28 13:29 | EKG ---
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: SUMANTH : 1940 Requested By: Ed Johnson Order Number: [id number] MD: Ed Johnson Measurements Intervals [place] Rate: 60 P: MI: 276 QRS: -94 QRSD: 181 T: 47 QT: 563 QTc: 563 Interpretive Statements Atrial-paced complexes Prolonged [place] interval Right bundle branch block Inferior infarct, age indeterminate Compared to ECG 07/26/2018 07:29:05 Atrial pacing is now present Electronically Signed On 07-28-2018 13:29:18 CDT by Ed Johnson [email or web address] ��������������������������������������������� <ELECTRONICALLY SIGNED> ���������������������������������������� By: Ed Johnson MD, [facility] ��������������������������������������������� 07/28/18 1329 0711 0 Ed Johnson MD, [facility] /EPI
[2018-07-28 16:00] VITALS: BP 157/81
[2018-07-28 16:20] VITALS: BP 148/73
--- NOTE | 2018-07-28 18:14 | NUR ---
ASSUMED CARE AT SHIFT CHANGE, ALERT AND ORIENTED X4. FORGETFUL AT TIMES. BP SLIGHTLY ELEVATED, AND APACED ON THE MONITOR. AMIO DRIP AT 16.7ML/HR AND HR MAITAINED 60/HR. AND WILL CONTINUE WITH POC.
[2018-07-28 20:31] VITALS: BP 148/65
[2018-07-29 03:41] LABS: CALCIUM 8.6 mg/dL (8.5-10.1); POTASSIUM 3.2 mmol/L (3.5-5.1)
[2018-07-29 03:47] VITALS: BP 139/61
--- NOTE | 2018-07-29 04:53 | NUR ---
PT RESTING QUIETLY IN ROOM THRU THE NOC, RT PLACED PT ON CPAP AROUND MNOC, PT TOOK IT OFF AT 0400 DESATED TO 78 PLACEDBACK ON 2L NC SAT CAME BACK UP TO 94%, NO C/O PAIN, INCISION REMAINS CDI, WILL CON'T TO MONITOR PER PPOC.
[2018-07-29 07:15] VITALS: BP 153/75
--- NOTE | 2018-07-29 09:12 | NUR ---
Nutrition: assess d/t LOS. Pt admitted for cardiomyopathy; hx of CAD, HTN, HLD, DM. Plan is for gentle diuresis. Pt reports decent appetite and UBW of 240 lbs (no recent wt change). Consider low nutrition risk.
[2018-07-29] MEDS ORDERED: PACERONE 200 M200 M1 PO (09:57)
[2018-07-29 11:15] VITALS: BP 140/68
--- NOTE | 2018-07-29 14:31 | P ---
[facility] [address] [address] PROCEDURE REPORT Name: JUAN ARBOLEDA Room #: 212-P [facility] IN M.R.#: [id number] Admission: 07/22/18 ������������������ Attend Phys: Calvin Marques Discharge: ������������������ Date of : 42 Report #: [id number] THIS REPORT FOR: //name// [facility] PROCEDURE PERFORMED: ICD implantation. PREOPERATIVE DIAGNOSES: 1. Sustained monomorphic VT. 2. Coronary artery disease. 3. Ischemic cardiomyopathy. 4. History of prior myocardial infarction. HISTORY: The patient is a 77-year-old male with a history of coronary artery disease, status post CABG as well as prior inferior myocardial infarction who presented with palpitations and a near syncope who was found to be in sustained monomorphic ventricular tachycardia and was cardioverted in the Emergency Room. He was noted to have an elevated troponin, which I believe was due to the sustained VT and ICD shock. He did undergo diagnostic cardiac catheterization and was found to have a tight lesion that was stented. I do not believe that this lesion was the cause of his ventricular tachycardia. I believe his VT is due to prior established myocardial infarction substrate. Yesterday evening, the patient had recurrent sustained ventricular tachycardia for 30 minutes. This did not terminate with IV amiodarone and required an emergent cardioversion. He is here today for ICD implantation for secondary prevention of sudden cardiac . ANESTHESIA: The patient underwent MAC anesthesia with no anesthesia related complications. PROCEDURE: The patient underwent informed consent. We discussed the details of the procedure including the risks, which include but not limited to bleeding, infection, vascular damage, cardiac perforation and pneumothorax. He understood these risks and is willing to proceed. The patient was brought to the EP laboratory in a fasting and unsedated state and prepped and draped in a sterile fashion. He underwent venography showing patency of the left axillary vein and received IV vancomycin for antibiotic prophylaxis. Next, I injected lidocaine below the level of the left clavicle. Incision was made. A pocket was created over the prepectoral fascia. Access was obtained twice to the left axillary vein using the extrathoracic approach with sheaths positioned using the modified Seldinger technique. Next, under fluoroscopy, I placed a lead into the right ventricular apex and another lead into the right [address] [address] PROCEDURE REPORT Name: ARBOLEDAJUAN M Room #: 212-P [facility] IN .R.#: [id number] Admission: 07/22/18 ������������������ Attend Phys: Calvin Marques Discharge: ������������������ Date of : 42 Report #: [id number] atrial appendage. Both had adequate pacing and sensing thresholds and were sutured to the prepectoral fascia. The leads were connected to the device and the device was placed in the pocket. The pocket was irrigated with vancomycin and then closed in two layers using 2-0 for the deep layer, 3-0 for the middle layer and surgical glue was placed throughout the skin layer. The patient awoke neurologically and hemodynamically intact. No complications. No significant bleeding. The implanted defibrillator was a Medtronic model number, WURN1X1, serial #[id number]. The atrial lead was a Medtronic model #5076, 52 cm, serial #[id number]. The RV lead was a Medtronic model #6947, 62 cm, serial #[id number]. The atrial lead demonstrated P-wave 1.6 millivolts, pacing impedance of 665 ohms and pacing threshold of 0.5 volts at 0.4 milliseconds. The RV lead demonstrated an R-wave of 7.6 millivolts, pacing impedance of 532 ohms, normal shock impedances and a pacing threshold of 0.5 volts at 0.4 milliseconds. The device was programmed to DDD 60-130 mode. The VT zone was set from 160-220 beats per minute with three rounds of burst followed by three rounds of ramp followed by max output shocks. The VF zone was set greater than 220 beats per minute with ATP while charging followed by max output shocks. CONCLUSIONS: 1. Successful dual-chamber ICD implantation. 2. Satisfactory atrial and ventricular pacing and sensing thresholds. ��������������������������������������������� <ELECTRONICALLY SIGNED> ���������������������������������������� By: Erlin Licea MD ��������������������������������������������� 07/29/18 1431 1724 0051 Erlin Licea MD /nt
[2018-07-29 15:40] VITALS: BP 160/74
--- NOTE | 2018-07-29 18:41 | NUR ---
ASSUMED CARE AT SHIFT CHANGE, ALERT AND ORIENTED X4. DENIES ANY DISCOMFORT. APACED ON THE MONITOR. IV LASIX GIVEN AND PATIENT ADEQUATE AMOUNT OF URINE OUTPUT. UP WALKING THE HALWAYS WITH STAND BY ASSISST. PROGRESSING TOWARD GOALS AND WILL CONTINUE WITH POC.
[2018-07-29 19:45] VITALS: BP 173/71
[2018-07-30] VITALS (11 sets, daily range): BP systolic 137–150; BP diastolic 51–65
[2018-07-30 05:06] LABS: BASOPHILS 0.1 % (0.0-2.0); HEMATOCRIT 44.5 % (42.0-52.0); HEMOGLOBIN 14.9 gm/dL (14.0-18.0); LYMPHOCYTES 4.9 % (24.0-44.0); MCH 29.8 pg (26.0-34.0); MCHC 33.4 g/dL (28.0-37.0); MCV 89.1 fL (80.0-100.0); MONOCYTES 2.3 % (1.0-8.0); PLATELET COUNT 194 thou/uL (150-400); POLYS 92.7 % (36.0-66.0); RBC 4.99 mil/uL (4.50-6.00); RDW 12.9 % (10.5-14.5); WBC 10.8 thou/uL (4.0-11.0)
[2018-07-30 05:20] LABS: ALBUMIN 2.7 g/dL (3.4-5.0); CALCIUM 8.7 mg/dL (8.5-10.1); CREATININE 1.3 mg/dL (0.7-1.3); POTASSIUM 3.8 mmol/L (3.5-5.1); TOTAL BILIRUBIN 0.6 mg/dL (<0.1-1.0); TOTAL PROTEIN 6.2 g/dL (6.4-8.2)
--- NOTE | 2018-07-30 05:44 | NUR ---
patients care were assumed at shift change. patient was assessed and meds were passed. patient had a hard time with wearing the cpap to sleep in. about 0130 changed out cpap to 2l nc. hourly rounds were done. the bed is in a low and locked position
[2018-07-30 07:09] LABS: BE(vivo) 11.1 mmol/L (-2 to +3); HCO3 38.4 mmol/L (22.0-26.0); PCO2 60.7 mmHg (35.0-45.0); PO2 58.4 mmHg (80.0-100.0); pH 7.419 (7.360-7.450)
[2018-07-30] MEDS ORDERED: DOXYCYCLINE 10100 MG PO (08:32)
[2018-07-30] MEDS ORDERED: CLOPIDOGREL75 MG PO (08:33)
[2018-07-30] MEDS ORDERED: COREG6.25 MG PO (08:34)
[2018-07-30] MEDS ORDERED: LOTENSIN20 MG PO (08:34)
[2018-07-30] MEDS ORDERED: ALDACTONE50 MG PO (08:34)
[2018-07-30] MEDS ORDERED: ASPIRIN325 PO (08:35)
[2018-07-30] MEDS ORDERED: DEMADEX 2020 MG/1 TA PO (08:36)
[2018-07-30] MEDS ORDERED: PREDNISONE 20 M20 MG PO (08:38)
[2018-07-30] MEDS ORDERED: NOVOLOG100 UNIT/1 SUBQ (08:39)
--- NOTE | 2018-07-30 10:20 | NUR ---
NOTIFIED [facility] OF REFERRAL PT. TO DC TODAY. THEY REVIEWED AND CAN ACCEPT AT DISCHARGE. NOTIFIED ADM.LIASON OF DC ORDERS AR FINISHED AND THEY WILL NOTIFY PT.TIME OF VISITS. PCP WILL BE .
--- NOTE | 2018-07-30 12:31 | NUR ---
ASSUMED AT SHIFT CHANGE, ASSESSMENT DOCUMENTED. AFEBRILE AND VSS, APACED ON THE MONITOR WITH HR OF 60/MINUT. DISCAHRGE AND MEDICATIONS INSTRUCTIONS GIVEN TO PATIENT.
--- NOTE | 2018-07-30 14:28 | NUR ---
patient to discharge home today with need for home oxygen and home health. Patient sat/ex completed and patient with need for 4 liters with exertion. Verified with RT who completed sat/ex. Faxed test results to [facility] who delivered o2 tank to patient for home use and will deliver concentrator later today to home. Verified address with patient. Patient with no PCP. He reports he has not seen Dr Crenshaw in years. Referral to [facility] and arranged apt with Dr Shah for patient for August 01 at 10:30. Sp with [facility] who is agreeable with accepting of patient and aware no PCP but apt THurs. Patient has no preference of HH agency or DME equiptment company. Patient signed the choice of senior payroll manager form.
== END 2018-07-30 16:02 | disposition home health service (06) | DRG 222 ==
LOC: ER 18:10 → EROBS 19:18 → 2N 19:18
PROVIDERS: Emergency Medicine; Internal Medicine; Nurse Practitioner; Pediatrics; ADMIT Hospitalist
DX: I21.4 Non-ST elevation (NSTEMI) myocardial infarction (principal); N17.0 Acute kidney failure with tubular necrosis; J96.01 Acute respiratory failure with hypoxia; I50.23 Acute on chronic systolic (congestive) heart failure; I47.2 Ventricular tachycardia; J44.1 Chronic obstructive pulmonary disease with (acute) exacerbation; I13.0 Hypertensive heart and chronic kidney disease with heart failure and stage 1 through stage 4 chronic kidney disease, or unspecified chronic kidney disease; I25.5 Ischemic cardiomyopathy; E78.5 Hyperlipidemia, unspecified; I25.10 Atherosclerotic heart disease of native coronary artery without angina pectoris; I08.1 Rheumatic disorders of both mitral and tricuspid valves; E11.649 Type 2 diabetes mellitus with hypoglycemia without coma; E87.6 Hypokalemia; N40.0 Benign prostatic hyperplasia without lower urinary tract symptoms; K21.9 Gastro-esophageal reflux disease without esophagitis; D72.829 Elevated white blood cell count, unspecified; E83.42 Hypomagnesemia; E66.9 Obesity, unspecified; F41.9 Anxiety disorder, unspecified; E11.22 Type 2 diabetes mellitus with diabetic chronic kidney disease; N18.9 Chronic kidney disease, unspecified; Z95.5 Presence of coronary angioplasty implant and graft; Z90.49 Acquired absence of other specified parts of digestive tract; Z79.82 Long term (current) use of aspirin; Z79.899 Other long term (current) drug therapy; Z88.6 Allergy status to analgesic agent; I25.2 Old myocardial infarction; Z88.8 Allergy status to other drugs, medicaments and biological substances; Z95.1 Presence of aortocoronary bypass graft; Z79.84 Long term (current) use of oral hypoglycemic drugs; Z87.891 Personal history of nicotine dependence; Z82.49 Family history of ischemic heart disease and other diseases of the circulatory system; Z83.3 Family history of diabetes mellitus; Z68.34 Body mass index [BMI] 34.0-34.9, adult

== ENCOUNTER → 2018-08-20 | Outpatient (CLI) | payer OTHER ==
[~2018-08-20] MED LIST changes: +ALDACTONE50 MG PO; +ASPIRIN325 PO; +CLOPIDOGREL75 MG PO; +COREG6.25 MG PO; +DEMADEX 2020 MG/1 TA PO; +DOXYCYCLINE 10100 MG PO; +FLOMAX0.4 MG PO; +LOTENSIN20 MG PO; +NOVOLIN R100 UNIT/1 SUBQ; +NOVOLIN R100 UNIT/3 SUBQ; +NOVOLOG100 UNIT/1 SUBQ; +PACERONE 200 M200 M1 PO; +PREDNISONE 20 M20 MG PO
== END ==
LOC: RAD 09:11
DX: J98.4 Other disorders of lung (principal); J90 Pleural effusion, not elsewhere classified; Z95.810 Presence of automatic (implantable) cardiac defibrillator

== ENCOUNTER → 2018-08-25 | Outpatient (CLI) | payer OTHER ==
--- NOTE | 2018-08-27 22:45 | SLE ---
[facility] [place] [address] POLYSOMNOGRAPHY STUDY Name: JUAN ARBOLEDA Room #: [facility]#: [id number] Admission: 08/25/18 ������������������ Attend Phys: Skip Rose MD Discharge: ������������������ Date of : 42 Report #: [id number] THIS REPORT FOR: //name// CC: Skip Pritchard DATE OF SERVICE: 08/25/2018 ATTENDING PHYSICIAN: Dr. Mart Bowman. The patient is 77 years old who weighs 220 pounds with a BMI of 32.5. The patient's [place] score was 19 suggesting severe subjective hypersomnia. The patient underwent diagnostic sleep study performed at [facility]. During the night study, the patient spent 405 minutes in bed and slept for 252 minutes with a low sleep efficiency of 62%. Sleep latency was 11.4 minutes with REM latency of 58.5 minutes. Overall, sleep architecture showed normal stage 1 sleep, increased stage 2 sleep, absent N3 sleep and reduced REM sleep. During the night of the study, the patient had 2 obstructive apneas, no mixed apneas and 1 central apnea and 58 hypopneas. The patient's apnea hypopnea index was 14.5 per hour with a REM index of 13.3 per hour and a supine index of 47 per hour. EKG monitoring revealed an average heart rate of 61 beats per minute. No sustained arrhythmias observed. PLMS were seen at an index of 30 per hour and 1.7 per hour caused EEG arousals. Nocturnal oximetry study revealed an average oxygen saturation of 88% with a lowest of 70%. 216 minutes were spent at an oxygen saturation of less than 89% and another 14 minutes with saturation of less than 79%. Due to low AHI, the patient did not meet the split night criteria for CPAP initiation. IMPRESSION: 1. Mild sleep apnea hypopnea syndrome with worsening during supine sleep. Total AHI of 14.5 per hour with a supine AHI of 47 per hour. 2. Nocturnal hypoxia secondary to combination of obstructive sleep apnea and suspected hypoventilation. 3. Moderate periodic limb movements. RECOMMENDATIONS: 1. The patient has mild sleep apnea with worsening during supine sleep. The patient is very symptomatic with an [place] score of 19. I would recommend [address] [address] [place] [address] POLYSOMNOGRAPHY STUDY Name: JUAN ARBOLEDA Room #: [facility]#: [id number] Admission: 08/25/18 ������������������ Attend Phys: Skip Rose MD Discharge: ������������������ Date of : 42 Report #: [id number] treating the patient's sleep apnea with either oral appliance as recommended by the dentist versus a trial of CPAP. 2. Avoid supine sleep. 3. Once the patient is optimally treated, then follow up in 4-6 weeks to assess compliance with treatment and to document clinical improvement. 4. Weight loss is strongly advised. 5. Avoid PILL MAKER depressants. 6. Cautioned regarding driving until symptoms of sleep apnea resolve with the above recommendation. 7. The patient should also be further evaluated for symptoms of restless legs during the day. ��������������������������������������������� <ELECTRONICALLY SIGNED> ���������������������������������������� By: Skip Rose MD ��������������������������������������������� 08/27/18 2245 1811 1916 Skip Rose MD /nt
== END ==
LOC: SLEEPLAB 11:59
DX: G47.33 Obstructive sleep apnea (adult) (pediatric) (principal); R09.02 Hypoxemia; G47.61 Periodic limb movement disorder; Z68.32 Body mass index [BMI] 32.0-32.9, adult

== ENCOUNTER 2018-10-06 07:05 | Emergency (ER) | payer OTHER ==
[~2018-10-06] VITALS: Ht 172.7 cm; Wt 96.2 kg
[2018-10-06 07:56] LABS: URINE BILIRUBIN NEGATIVE (Negative); URINE BLOOD NEGATIVE (Negative); URINE CLARITY CLEAR; URINE COLOR YELLOW; URINE GLUCOSE-RANDOM* NEGATIVE (Negative); URINE KETONES NEGATIVE (Negative); URINE LEUKOCYTES-REFLEX NEGATIVE (Negative); URINE NITRITE-REFLEX NEGATIVE (Negative); URINE PROTEIN (DIPSTICK) NEGATIVE (Negative); URINE SPECIFIC GRAVITY 1.025 (1.005-1.035); URINE UROBILINOGEN 0.2 E.U./dl (0.2-1.0)
[2018-10-06 08:32] LABS: ABSOLUTE NEUTROPHILS 6.5 thou/uL (1.4-8.2); BASOPHILS 0.3 % (0.0-2.0); EOSINOPHILS 0.5 % (0.0-3.0); HEMATOCRIT 45.8 % (42.0-52.0); HEMOGLOBIN 15.3 gm/dL (14.0-18.0); LYMPHOCYTES 15.5 % (24.0-44.0); MCH 29.9 pg (26.0-34.0); MCHC 33.3 g/dL (28.0-37.0); MCV 89.8 fL (80.0-100.0); MONOCYTES 6.1 % (1.0-8.0); PLATELET COUNT 216 thou/uL (150-400); POLYS 77.6 % (36.0-66.0); RDW 14.4 % (10.5-14.5); WBC 8.3 thou/uL (4.0-11.0)
[2018-10-06 08:39] LABS: CALCIUM 9.6 mg/dL (8.5-10.1); CREATININE 1.3 mg/dL (0.7-1.3); POTASSIUM 4.4 mmol/L (3.5-5.1)
[2018-10-06 08:49] LABS: ALBUMIN 3.4 g/dL (3.4-5.0); DIRECT BILIRUBIN 0.1 mg/dL (<0.1-0.3); TOTAL BILIRUBIN 0.9 mg/dL (<0.1-1.0); TOTAL PROTEIN 6.8 g/dL (6.4-8.2); TROPONIN-I 0.13 ng/mL (<0.06)
--- NOTE | 2018-10-06 14:01 | EKG ---
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: Supervisor Volunteer Services: jlambert : 1940 Requested By: Vicky Maloney Order Number: [id number] MD: Ed Johnson Measurements Intervals [place] Rate: 62 P: 43 OH: 293 QRS: -79 QRSD: 181 T: 49 QT: 504 QTc: 512 Interpretive Statements Atrial-paced complexes Prolonged [place] interval Inferior infarct, age indeterminate Right bundle branch block Compared to ECG 07/27/2018 07:11:17 No significant change was found Electronically Signed On 10-06-2018 14:01:31 CDT by Ed Johnson [email or web address] ��������������������������������������������� <ELECTRONICALLY SIGNED> ���������������������������������������� By: Ed Johnson MD, [facility] ��������������������������������������������� 10/06/18 1401 1012 1012 Ed Johnson MD, [facility] /EPI
[2018-10-06 14:19] VITALS: BP 145/75
[2018-10-06] MEDS ORDERED: XANAX 0.25 MG0.25 MG PO (15:16)
== END 2018-10-06 15:28 | disposition home or self-care (01) ==
LOC: ER 07:05
PROVIDERS: Emergency Medicine
DX: K59.00 Constipation, unspecified (principal); R45.0 Nervousness; I12.9 Hypertensive chronic kidney disease with stage 1 through stage 4 chronic kidney disease, or unspecified chronic kidney disease; E11.22 Type 2 diabetes mellitus with diabetic chronic kidney disease; N18.9 Chronic kidney disease, unspecified; I25.10 Atherosclerotic heart disease of native coronary artery without angina pectoris; Z87.891 Personal history of nicotine dependence; Z88.8 Allergy status to other drugs, medicaments and biological substances; Z90.49 Acquired absence of other specified parts of digestive tract; Z95.5 Presence of coronary angioplasty implant and graft; Z95.1 Presence of aortocoronary bypass graft; Z79.4 Long term (current) use of insulin

== ENCOUNTER → 2019-01-30 | Outpatient (CLI) | payer OTHER ==
[~2019-01-30] MED LIST changes: +XANAX 0.25 MG0.25 MG PO
== END ==
LOC: ULTRA 09:48
DX: N63.10 Unspecified lump in the right breast, unspecified quadrant (principal)

== ENCOUNTER → 2019-02-10 | Outpatient (CLI) | payer OTHER | LOC: RAD 10:48 | DX: J98.4 Other disorders of lung (principal); J98.11 Atelectasis; I11.9 Hypertensive heart disease without heart failure; Z95.0 Presence of cardiac pacemaker ==

== ENCOUNTER → 2019-05-16 | Outpatient (CLI) | payer OTHER | LOC: SJCVC 12:02 | DX: Z45.02 Encounter for adjustment and management of automatic implantable cardiac defibrillator (principal); I25.10 Atherosclerotic heart disease of native coronary artery without angina pectoris; I25.5 Ischemic cardiomyopathy; I47.2 Ventricular tachycardia; E78.5 Hyperlipidemia, unspecified; J44.9 Chronic obstructive pulmonary disease, unspecified; E11.22 Type 2 diabetes mellitus with diabetic chronic kidney disease; I12.9 Hypertensive chronic kidney disease with stage 1 through stage 4 chronic kidney disease, or unspecified chronic kidney disease; N18.9 Chronic kidney disease, unspecified; I65.23 Occlusion and stenosis of bilateral carotid arteries; I25.2 Old myocardial infarction; G47.33 Obstructive sleep apnea (adult) (pediatric); Z90.49 Acquired absence of other specified parts of digestive tract; Z95.2 Presence of prosthetic heart valve; Z95.1 Presence of aortocoronary bypass graft; Z79.4 Long term (current) use of insulin; Z79.82 Long term (current) use of aspirin; Z79.899 Other long term (current) drug therapy; Z87.891 Personal history of nicotine dependence ==

== ENCOUNTER 2019-09-25 17:27 | Inpatient (IN) | payer OTHER ==
[~2019-09-25] VITALS: Ht 175.3 cm; Wt 107.0 kg
[2019-09-25 17:27] VITALS: BP 149/119
--- NOTE | 2019-09-25 17:55 | NUR ---
AT APROX 1747 DR MATTSON ADMIN 50 OF PROPOFOL PER 18G IN LEFT AC V/S AT THAT TIME ARE: HR 142 V-TACH ON THE MONITOR, BP 148/95, RR 18, 99% 2L/NC, END TITAL OF 41 PT IS NOTICABLY DROWSY AT APPROX 1749. ZOLL IS CHARGED TO 100 J AND AT APPROX 1750 PT IS SYNCHRONIZED CARDIOVERTED. AFTER CARDIOVERSION PT REVERTED TO AN AIJR RHYTHM WITH V/S: HR 94, RR 16, ETCO2 42, BP 99/73, SPO2 94% ON 3LPM VIA NC 12LD EKG OBTAINED AT 1752 PT A+Ox4 BY 1756
[2019-09-25 18:08] LABS: ABSOLUTE NEUTROPHILS 7.9 thou/uL (1.4-8.2); BASOPHILS 0.7 % (0.0-2.0); EOSINOPHILS 0.3 % (0.0-3.0); HEMATOCRIT 56.6 % (42.0-52.0); HEMOGLOBIN 19.1 gm/dL (14.0-18.0); LYMPHOCYTES 19.4 % (24.0-44.0); MCHC 33.7 g/dL (28.0-37.0); MCV 92.1 fL (80.0-100.0); MONOCYTES 7.8 % (1.0-8.0); POLYS 71.8 % (36.0-66.0); RBC 6.14 mil/uL (4.50-6.00); RDW 14.1 % (10.5-14.5)
[2019-09-25 18:11] LABS: CREATININE 2.4 mg/dL (0.7-1.3)
[2019-09-25 18:21] LABS: ALBUMIN 3.8 g/dL (3.4-5.0); TOTAL BILIRUBIN 0.6 mg/dL (0.2-1.0); TROPONIN-I 0.12 ng/mL (<0.06)
[2019-09-25 18:28] LABS: PLATELET COUNT 206 thou/uL (150-400)
[2019-09-25 18:29] LABS: LARGE PLATELETS RARE
[2019-09-25] MEDS ORDERED: PACERONE200 MG PO (19:02)
[2019-09-25] MEDS ORDERED: LEVEMIR100 UNIT/2 SUBQ (19:05)
[2019-09-25] MEDS ORDERED: HUMALOG100 UNIT/1 SUBQ (19:05)
[2019-09-25 20:52] VITALS: BP 107/68
[2019-09-25 21:20] VITALS: BP 139/83
[2019-09-25 21:45] VITALS: BP 151/78
--- NOTE | 2019-09-26 01:09 | NUR ---
PT ADMITTED 2129, FROM ED S/P CARDIOVERSION. ALERT AND ORIENTED X 4. DENIES CHEST PAIN, OR PALPITATIONS. PT APACED, SR, w 1D, &BBB ON ADMISSION. HR IS 70s AND 60s. REPORTS SOB, O2 [address] JEAN NOTIFIED ABOUT PT ADMISSION ORDERS BUT REQUESTED FOR HOSPITALIST TO FOLLOW SINCE HE WAS ONLY BEING CONSULLTED. PAGE DR VALENZUELA WHO IS THE PCP BUT NO CALL BACK RECEIVED. PT ORIENTED TO ROOM, CALL LIGHT SYSTEM, CONSENT FORMS SIGNED. HOME MEDICATIONS SENT TO PHARMACY. PT ADMITTED IN STABLE CONDITION. NO OTHER EVENT NOTED. WILL CONTINUE TO MONITOR
[2019-09-26 04:45] VITALS: BP 143/77
[2019-09-26 06:51] LABS: CALCIUM 8.6 mg/dL (8.5-10.1); CREATININE 1.6 mg/dL (0.7-1.3); POTASSIUM 4.4 mmol/L (3.5-5.1)
[2019-09-26 07:54] VITALS: BP 149/79
[2019-09-26 11:20] VITALS: BP 140/82
--- NOTE | 2019-09-26 13:11 | 2DMMODE ---
[address] [address] 2 D/M-MODE ECHOCARDIOGRAM Name: JUAN ARBOLEDA Room #: 201-P ADM IN M.R.#: [id number] Admission: 09/25/19 Attend Phys: Bob Goldstein MD Discharge: Date of : 41 Report #: [id number] THIS REPORT FOR: cc: Mikel Pritchard James A. DO Lundgren, Craig H. MD [facility] ~ APPROVED REPORT Study performed: 09/26/2019 11:05:13 EXAM: Comprehensive 2D, Doppler, and color-flow Echocardiogram Patient Location: Bedside Room #: 201 Status: routine BSA: 2.22 HR: 61 bpm BP: 149/79 mmHg Rhythm: Pacemaker Other Information Study Quality: Fair Indications ICD: COPD Diabetes CAD Cardiomyopathy Hypertension/HDD 2D Dimensions IVC: 28.00 mm Volumes Left Atrial Volume (Systole) Single Plane 4CH: 50.75 mL Single Plane 2CH: 40.84 mL LA ESV Index: 24.00 mL/m2 Aortic Valve AoV Peak Abiel.: 1.13 m/s AO Peak Gr.: 5.15 mmHg LVOT Max P.54 mmHg LVOT Max V: 0.94 m/s Mitral Valve [address] [address] 2 D/M-MODE ECHOCARDIOGRAM Name: JUAN ARBOLEDA Room #: 201-P [facility] IN M.R.#: [id number] Admission: 09/25/19 Attend Phys: Bob Goldstein, Discharge: Date of : 41 Report #: [id number] E/A Ratio: 0.4 MV Decel. Time: 498.99 ms MV E Max Abiel.: 0.48 m/s MV A Abiel.: 1.11 m/s MV PHT: 144.71 ms IVRT: 212.23 ms Pulmonary Valve PV Peak Abiel.: 0.92 m/s PV Peak Gr.: 3.40 mmHg Pulmonary Vein P Vein S: 0.34 m/s P Vein A: 0.18 m/s P Vein D: 0.21 m/s P Vein A Dur.: 92.3 msec P Vein S/D Ratio: 1.62 Left Ventricle The left ventricle is normal size. There is normal left ventricular wall thickness. Left ventricular ejection fraction is moderately decreased. Hypokinesis of the inferior and inferoseptal paz. LVEF is 35-40%. Mild diastolic dysfunction is present (impaired relaxation pattern). Right Ventricle The right ventricle is normal size. The right ventricular systolic function is normal. Device lead is present in the right ventricle. Atria The left atrium size is normal. The right atrium size is normal. dEVICE lead is present in the right atrium. Aortic Valve The aortic valve is normal in structure. No aortic regurgitation is present. There is no aortic valvular stenosis. Mitral Valve Mild mitral annular calcification There is no mitral valve regurgitation noted. No evidence of mitral valve stenosis. Tricuspid Valve The tricuspid valve is normal in structure. There is no tricuspid valve regurgitation noted. Pulmonic Valve The pulmonary valve is normal in structure. There is no pulmonic valvular regurgitation. [facility] [address] [address] 2 D/M-MODE ECHOCARDIOGRAM Name: JUAN ARBOLEDA Room #: 201-P [facility] IN [facility].#: [id number] Admission: 09/25/19 Attend Phys: Bob Goldstein, Discharge: Date of : 41 Report #: [id number] Great Vessels The aortic root is normal in size. IVC is dilated and collapses <50% with inspiration. Pericardium There is no pericardial effusion. <Conclusion> Left ventricular ejection fraction is moderately decreased. LVEF is 35-40%. Hypokinesis of the inferior and inferoseptal paz. Mild diastolic dysfunction The aortic valve is normal in structure. No aortic regurgitation or stenosis. Mild mitral annular calcification. No mitral valve regurgitation Pulmonary artery systolic pressure could not be reliably ascertained There is no pericardial effusion. <ELECTRONICALLY SIGNED> By: Ed Johnson MD, [facility] 09/26/190 131 1310 Ed Johnson MD, FACC /INF
--- NOTE | 2019-09-26 14:04 | EKG ---
[facility] [place] [address] ELECTROCARDIOGRAM REPORT Name: JUAN ARBOLEDA Room #: 201-P ADM IN M.R.#: [id number] Admission: 09/25/19 Attend Phys: Bob Goldstein MD Discharge: Date of : 42 Report #: [id number] THIS REPORT FOR: cc: Mikel Pritchard James A. DO Couchonnal, Luis F. MD ~ THIS REPORT FOR: //name// [facility] ED Test Date: 2019-09-25 Test Time: 17:32:30 Pat Name: JUAN ARBOLEDA Department: Room: 201 Gender: M Fullerette: CYNDIE : 1940 Requested By: Vicky Maloney Order Number: [id number] MD: Erlin Licea Measurements Intervals [place] Rate: 144 P: 102 SD: 153 QRS: 221 QRSD: 175 T: 71 QT: 380 QTc: 588 Interpretive Statements Sustained ventricular tachycardia Electronically Signed On 09-26-2019 14:03:22 CDT by Erlin Licea [email or web address] <ELECTRONICALLY SIGNED> By: Erlin Licea MD 09/26/19 1403 1732 1732 Erlin Licea MD /EPI
--- NOTE | 2019-09-26 14:04 | EKG ---
[facility] [place] [address] ELECTROCARDIOGRAM REPORT Name: JUAN ARBOLEDA Room #: 201-P ADM IN M.R.#: [id number] Admission: 09/25/19 Attend Phys: Bob Goldstein MD Discharge: Date of : 42 Report #: [id number] THIS REPORT FOR: cc: Mikel Pritchard James A. DO Couchonnal, Luis F. MD ~ THIS REPORT FOR: //name// [facility] ED Test Date: 2019-09-25 Test Time: 17:52:30 Pat Name: JUAN ARBOLEDA Department: Room: 201 Gender: M Integration Technician: CYNDIE : 1940 Requested By: Vicky Maloney Order Number: [id number] MD: Erlin Licea Measurements Intervals [place] Rate: 98 P: GA: QRS: 148 QRSD: 185 T: 9 QT: 433 QTc: 553 Interpretive Statements SINUS RHYTHM Compared to ECG 09/25/2019 17:32:30 Electronically Signed On 09-26-2019 14:03:42 CDT by Erlin Licea [email or web address] <ELECTRONICALLY SIGNED> By: Erlin Licea MD 09/26/19 1403 51 175 Erlin Licea MD /EPI
--- NOTE | 2019-09-26 14:07 | EKG ---
[facility] [place] [address] ELECTROCARDIOGRAM REPORT Name: JUAN ARBOLEDA Room #: 201-P ADM IN M.R.#: [id number] Admission: 09/25/19 Attend Phys: Bob Goldstein MD Discharge: Date of : 42 Report #: [id number] THIS REPORT FOR: cc: Mikel Pritchard James A. DO Couchonnal, Luis F. MD ~ THIS REPORT FOR: //name// [facility] Test Date: 2019-09-26 Test Time: 07:41:40 Pat Name: JUAN ARBOLEDA Department: Room: 201 P Gender: M Deep Fat Cook Fry: Kami SALAZAR : 1940 Requested By: Ed Johnson Order Number: [id number] MD: Erlin Licea Measurements Intervals [place] Rate: 64 P: 68 VT: 365 QRS: 103 QRSD: 173 T: 30 QT: 453 QTc: 468 Interpretive Statements Atrial paced rhythm Prolonged [place] interval RBBB and LPFB Compared to ECG 09/25/2019 17:52:30 First degree AV block now present Accelerated junctional rhythm no longer present Electronically Signed On 09-26-2019 14:06:50 CDT by Erlin Licea [email or web address] <ELECTRONICALLY SIGNED> By: Erlin Licea MD 09/26/19 1406 0 0 Erlin Licea MD /EPI
--- NOTE | 2019-09-26 15:46 | NUR ---
INITIAL ASSESSMENT: SW reviewed chart and spoke with attending physician. Pt was admitted from home due to v-tach. Pt may be ready for d/c over the weekend. SW met with pt and at bedside. Introduced role of SW. Pt is alert/orientated x 4. Pt and live in their home. 3 steps to enter. no steps inside. Prior to admission, pt was using a cane to assist with ambulation. [facility] Pt is normally on 3L. Pt has used [facility] in the past for home health and would like to have HH at time of discharge. Pt's PCP is Dr. Mikel Pritchard. SW faxed referral to Liam and notified liaison. Contact info for HH placed in pt's discharge summary. Finalized discharge orders/summary will need to be faxed when available. Pt's family to provide transportation home. SW is following to assist as needed with discharge planning. ANUPAM ---
[2019-09-26 16:12] VITALS: BP 145/78
--- NOTE | 2019-09-26 19:31 | NUR ---
ASSUMED CARE AT 0700, ASSESSMENT AND VITAL SIGNS COMPLETED PER CCU PROTOCOL. PT REMAINS ON AMIODARONE GTT. PLAN OF CARE DISCUSSED WITH ROUNDING PHYSCICIANS. RN WILL CONTINUE TO MONITOR.
[2019-09-26 20:00] VITALS: BP 146/88
[2019-09-27] VITALS: BP 140/91
[2019-09-27 01:06] LABS: GLYCOHEMOGLOBIN (HGB A1C) 10.2 % (4.8-5.6)
[2019-09-27 03:30] VITALS: BP 144/88
[2019-09-27 05:16] LABS: ABSOLUTE NEUTROPHILS 6.6 thou/uL (1.4-8.2); BASOPHILS 0.3 % (0.0-2.0); EOSINOPHILS 1.5 % (0.0-3.0); HEMATOCRIT 51.7 % (42.0-52.0); LYMPHOCYTES 18.3 % (24.0-44.0); MCH 30.3 pg (26.0-34.0); MCHC 32.9 g/dL (28.0-37.0); MCV 92.2 fL (80.0-100.0); MONOCYTES 7.7 % (1.0-8.0); PLATELET COUNT 167 thou/uL (150-400); POLYS 72.2 % (36.0-66.0); RBC 5.61 mil/uL (4.50-6.00); WBC 9.2 thou/uL (4.0-11.0)
--- NOTE | 2019-09-27 05:20 | NUR ---
TOOK OVER CARE OF PATIENT AT 2350 FROM DARLINE PATRICK. PATIENT SLEEPING IN BED AT TELESALES REPRESENTATIVE. PATIENT USING URINAL AT BEDSIDE, ADEQUATE OUTPUT. SINUS RHYTHM WITH 1ST DEGREE AND BBB ON TELEMETRY, NO PACEMAKER SPIKES SHOWING ON TELEMETRY. AMIODARONE RUNNING THROUGHOUT SHIFT CHANGED IV SITE FROM LEFT FOREARM TO LEFT AC DUE TO PAIN AT IV SITE. FOREARM SITE DISCONTINUED. PATIENT RESTING EASILY WATCHING THE LIGHTENING STORM. FALL PRECAUTIONS IN PLACE DURING SHIFT. DENIED PAIN.
[2019-09-27 05:34] LABS: CALCIUM 8.8 mg/dL (8.5-10.1); CREATININE 1.5 mg/dL (0.7-1.3); POTASSIUM 4.1 mmol/L (3.5-5.1)
[2019-09-27 07:49] VITALS: BP 148/79
--- NOTE | 2019-09-27 09:51 | EKG ---
[facility] [place] [address] ELECTROCARDIOGRAM REPORT Name: JUAN ARBOLEDA Room #: 201-P ADM IN M.R.#: [id number] Admission: 09/25/19 Attend Phys: Bob Goldstein MD Discharge: Date of : 42 Report #: [id number] THIS REPORT FOR: cc: Mikel Pritchard James A. DO Lundgren, Craig H. MD [facility] ~ THIS REPORT FOR: //name// [facility] Test Date: 2019-09-27 Test Time: 07:35:43 Pat Name: JUAN ARBOLEDA Department: Room: 201 P Gender: M Application Penetration Tester: WILLIAN : 1940 Requested By: Ed Johnson Order Number: [id number] MD: Ed Johnson Measurements Intervals [place] Rate: 66 P: 54 CO: 343 QRS: 152 QRSD: 180 T: 20 QT: 507 QTc: 532 Interpretive Statements Sinus rhythm Prolonged [place] interval RBBB Inferior infarct, age indeterminate Compared to ECG 09/26/2019 07:41:40 Atrial-paced complex(es) or rhythm no longer present Electronically Signed On 09-27-2019 9:50:40 CDT by Ed Johnson [email or web address] <ELECTRONICALLY SIGNED> By: Ed Johnson MD, [facility] 09/27/19 0950 Ed Johnson MD, [facility] /EPI
[2019-09-27 11:23] VITALS: BP 132/77
--- NOTE | 2019-09-27 14:59 | NUR ---
RECEIVED PT'S CARE AROUND 0710; PT. ON BED; AOX4; DURING AM ASSESSMENT NO C/O PAIN; CONCERNED ABOUT BLOOD SUGAR; EDUCATED ABOUT INSULIN SCALE; ST. UNDERSTANDING; BS ON THE 200s; PHYSICIAN NOTIFIED DURING ROUNDINGS; ORDERS ON PLACED; PER CARDIOLOGY FINISH AMIODERONE BAG AND D/C IT; BAG FINISHED AT 1500; MONITORING; AT LUNCH TIME BLOOD SUGAR ABOVE 300; PT. CONCERN ABOUT NOT GETTING RIGHT AMMOUNT OF INSULIN; REMAINED ABOUT POC; INCREASING INSULIN SCALE; ST. "I DO NOT WANT TO EAT BECAUSE I DO NOT WANT MY SUGAR TO GO HIGH"; EDUCATED ABOUT THE IMPORTANCE OF EATING & NO SKIPPING MEALS; ST. UNDERSTANDING; 20 UNITS OF INSULIN GIVEN; MONITORING; EDUCATED ABOUT CALLING IF FEELING ANY HEADACHE OR S/S OF HYPOGLYCEMIA; ST. UNDERSTANDING; ASSESSMENT CHARGED; FOLLOWING POC; WILL PASS ON REPORT;
[2019-09-27 15:49] VITALS: BP 150/79
[2019-09-27 19:30] VITALS: BP 154/90
[2019-09-28 03:00] VITALS: BP 132/72
--- NOTE | 2019-09-28 03:43 | NUR ---
ASSUMED CARE OF PATIENT AT 1900. PATIENT HAD A BLOOD SUGAR OF 323 @ 2002. PATIENT BECAME VERY ANXIOUS ABOUT HIS BLOOD SUGAR BEING THAT HIGH. ADMINISTERED LISPRO PER SLIDING SCALE AND LANTUS ORDERED. PATIENT REQUESTED HIS BLOOD SUGAR TO BE CHECK FREQUENTLY PATIENT STATED HE WAS WORRIED ABOUT HAVING A HYPOGLYCEMIC EVENT LIKE HE DID EARLIER IN THE DAY. D/T CONCERN ABOUT BS, PATIENT DECLINED THE PRN ALPRAZOLAM THAT HE HAD PREVIOUSLY REQUEST. PATIENT AGAIN REQUEST BS TO BE CHECKED AROUND 0200. BS WAS 165. PATIENT STATED THAT WAS ACCEPTABLE. PATIENT DID NOT REST WELL THROUGH NIGHT.
[2019-09-28 04:59] LABS: HEMATOCRIT 51.6 % (42.0-52.0); HEMOGLOBIN 17.2 gm/dL (14.0-18.0); MCH 30.8 pg (26.0-34.0); MCHC 33.3 g/dL (28.0-37.0); MCV 92.5 fL (80.0-100.0); RBC 5.58 mil/uL (4.50-6.00); RDW 13.9 % (10.5-14.5); WBC 10.3 thou/uL (4.0-11.0)
[2019-09-28 05:03] LABS: CALCIUM 9.1 mg/dL (8.5-10.1); CREATININE 1.6 mg/dL (0.7-1.3); POTASSIUM 3.9 mmol/L (3.5-5.1)
[2019-09-28 07:49] VITALS: BP 130/75
--- NOTE | 2019-09-28 10:05 | EKG ---
[facility] [address] ELECTROCARDIOGRAM REPORT Name: JUAN ARBOLEDA Room #: 201-P ADM IN M.R.#: [id number] Admission: 09/25/19 Attend Phys: Bob Goldstein MD Discharge: Date of : 42 Report #: [id number] THIS REPORT FOR: cc: Mikel Pritchard James A. DO Lundgren, Craig H. MD [facility] THIS REPORT FOR: //name// [facility] Test Date: 2019-09-28 Test Time: 09:03:26 Pat Name: JUAN ARBOLEDA Department: Room: 201 P Gender: M Public Welfare Worker: RACHELLE : 1940 Requested By: Ed Johnson Order Number: [id number] MD: Ed Johnson Measurements Intervals [place] Rate: 67 P: -8 NM: 343 QRS: 141 QRSD: 188 T: -2 QT: 483 QTc: 510 Interpretive Statements Sinus rhythm Prolonged [place] interval RBBB and LPFB Compared to ECG 09/27/2019 07:35:43 No significant change was found Electronically Signed On 09-28-2019 10:05:18 CDT by Ed Johnson [email or web address] <ELECTRONICALLY SIGNED> By: Ed Johnson MD, [facility] 09/28/19 1005 2 2 Ed Johnson MD, FAC /EPI
[2019-09-28 11:15] VITALS: BP 114/60
[2019-09-28] MEDS ORDERED: PACERONE 200 M200 M1 PO (11:36)
--- NOTE | 2019-09-28 11:45 | NUR ---
RECEIVED PT'S CARE AROUND 0720; PT. ON CHAIR; AOX4; DURING AM ASSESSMENT NO C/O PAIN; AM MEDICATION GIVEN; INSULING GIVEN AFTER BREAKFAST; MONITORING; PER AGRICULTURAL ECONOMIST OK FOR PT. TO GO HOME; HOSPITALIST NOTIFIED WHEN ROUNDING; PT. EDUCATED ABOUT D/C PROCESS; ST. UNDERSTANDING; ASSESSMENT CHARGED; FOLLOWED POC; D/C ORDERS ON PLACED; WORKING ON D/C PAPERS;
[2019-09-28 11:51] VITALS: BP 114/60
== END 2019-09-28 12:57 | disposition home health service (06) | DRG 308 ==
LOC: ER 17:27 → 2N 18:42 → EROBS 18:42 → 2N 21:24
PROVIDERS: Emergency Medicine; Nurse Practitioner Family; ADMIT Internal Medicine Cardiovascular Disease; ATTEND Internal Medicine
PROC: 5A2204Z Restoration of Cardiac Rhythm, Single (ICD-10-PCS; principal; 2019-09-25)
PROC: 4B02XTZ Measurement of Cardiac Defibrillator, External Approach (ICD-10-PCS; 2019-09-26)
DX: I47.2 Ventricular tachycardia (principal); N17.0 Acute kidney failure with tubular necrosis; J96.11 Chronic respiratory failure with hypoxia; I50.22 Chronic systolic (congestive) heart failure; I13.0 Hypertensive heart and chronic kidney disease with heart failure and stage 1 through stage 4 chronic kidney disease, or unspecified chronic kidney disease; I25.10 Atherosclerotic heart disease of native coronary artery without angina pectoris; E11.22 Type 2 diabetes mellitus with diabetic chronic kidney disease; N18.9 Chronic kidney disease, unspecified; I34.0 Nonrheumatic mitral (valve) insufficiency; J44.9 Chronic obstructive pulmonary disease, unspecified; G47.33 Obstructive sleep apnea (adult) (pediatric); E66.9 Obesity, unspecified; I65.29 Occlusion and stenosis of unspecified carotid artery; G47.00 Insomnia, unspecified; N40.0 Benign prostatic hyperplasia without lower urinary tract symptoms; R63.4 Abnormal weight loss; E55.9 Vitamin D deficiency, unspecified; I25.5 Ischemic cardiomyopathy; E78.5 Hyperlipidemia, unspecified; Z93.3 Colostomy status; Z95.5 Presence of coronary angioplasty implant and graft; Z95.1 Presence of aortocoronary bypass graft; I25.2 Old myocardial infarction; Z90.49 Acquired absence of other specified parts of digestive tract; Z79.899 Other long term (current) drug therapy; Z87.891 Personal history of nicotine dependence; Z99.81 Dependence on supplemental oxygen; Z68.34 Body mass index [BMI] 34.0-34.9, adult; Z95.810 Presence of automatic (implantable) cardiac defibrillator
CPT/HCPCS: 10081

== ENCOUNTER → 2019-10-02 | Outpatient (CLI) | payer OTHER ==
[~2019-10-02] MED LIST changes: +HUMALOG100 UNIT/1 SUBQ; +LEVEMIR100 UNIT/2 SUBQ; +PACERONE200 MG PO
== END ==
LOC: SJCVC 13:27
PROVIDERS: ATTEND Internal Medicine
DX: R94.31 Abnormal electrocardiogram [ECG] [EKG] (principal); I45.10 Unspecified right bundle-branch block; I47.2 Ventricular tachycardia; J44.9 Chronic obstructive pulmonary disease, unspecified; I12.9 Hypertensive chronic kidney disease with stage 1 through stage 4 chronic kidney disease, or unspecified chronic kidney disease; N18.9 Chronic kidney disease, unspecified; I65.23 Occlusion and stenosis of bilateral carotid arteries; I25.2 Old myocardial infarction; I25.10 Atherosclerotic heart disease of native coronary artery without angina pectoris; I25.5 Ischemic cardiomyopathy; E78.5 Hyperlipidemia, unspecified; Z95.1 Presence of aortocoronary bypass graft; Z79.899 Other long term (current) drug therapy; Z87.891 Personal history of nicotine dependence

== ENCOUNTER → 2019-11-13 | Outpatient (CLI) | payer OTHER | LOC: SJCVCIMAG 06:45 | PROVIDERS: ATTEND Internal Medicine | DX: I65.23 Occlusion and stenosis of bilateral carotid arteries (principal); I05.8 Other rheumatic mitral valve diseases; I45.10 Unspecified right bundle-branch block; R94.31 Abnormal electrocardiogram [ECG] [EKG]; I13.10 Hypertensive heart and chronic kidney disease without heart failure, with stage 1 through stage 4 chronic kidney disease, or unspecified chronic kidney disease; N18.9 Chronic kidney disease, unspecified; I42.9 Cardiomyopathy, unspecified; J44.9 Chronic obstructive pulmonary disease, unspecified; I25.810 Atherosclerosis of coronary artery bypass graft(s) without angina pectoris; I25.5 Ischemic cardiomyopathy; I47.2 Ventricular tachycardia; E78.5 Hyperlipidemia, unspecified; I48.91 Unspecified atrial fibrillation; Z95.1 Presence of aortocoronary bypass graft; Z82.49 Family history of ischemic heart disease and other diseases of the circulatory system; Z87.891 Personal history of nicotine dependence; Z79.4 Long term (current) use of insulin; Z79.899 Other long term (current) drug therapy ==

== ENCOUNTER 2020-07-30 12:13 | Emergency (ER) | payer OTHER ==
[~2020-07-30] VITALS: Ht 175.3 cm; Wt 102.1 kg
[2020-07-30] MEDS ORDERED: AMIODARONE HCL400 MG PO (12:42)
[2020-07-30] MEDS ORDERED: COREG PO (12:43)
[2020-07-30] MEDS ORDERED: TOUJEO SOL300 UNIT/1 SUBQ (12:45)
[2020-07-30 13:04] LABS: ABSOLUTE NEUTROPHILS 13.8 thou/uL (1.4-8.2); BASOPHILS 0.6 % (0.0-2.0); EOSINOPHILS 0.4 % (0.0-3.0); HEMATOCRIT 50.7 % (42.0-52.0); HEMOGLOBIN 17.1 gm/dL (14.0-18.0); LYMPHOCYTES 9.7 % (24.0-44.0); MCH 31.2 pg (26.0-34.0); MCHC 33.6 g/dL (28.0-37.0); MCV 92.6 fL (80.0-100.0); MONOCYTES 6.2 % (1.0-8.0); PLATELET COUNT 186 thou/uL (150-400); POLYS 83.1 % (36.0-66.0); RBC 5.47 mil/uL (4.50-6.00); RDW 14.2 % (10.5-14.5); WBC 16.6 thou/uL (4.0-11.0)
[2020-07-30 13:12] LABS: CALCIUM 9.4 mg/dL (8.5-10.1); CREATININE 1.9 mg/dL (0.7-1.3); POTASSIUM 4.8 mmol/L (3.5-5.1)
[2020-07-30 13:22] LABS: ALBUMIN 3.8 g/dL (3.4-5.0); TOTAL BILIRUBIN 0.9 mg/dL (0.2-1.0); TOTAL PROTEIN 7.4 g/dL (6.4-8.2); TROPONIN-I 0.11 ng/mL (<0.06)
[2020-07-30 13:23] LABS: APTT 25.9 Seconds (24.5-32.8); D-DIMER 1.08 ug/mLFEU (0.19-0.50); INR 1.02; PROTIME 11.1 Seconds (10.5-12.1)
[2020-07-30] MEDS ORDERED: MEDROLDOSEPACK PO (15:33)
[2020-07-30] MEDS ORDERED: COMPACT COMPRE1 EACH MC (15:33)
[2020-07-30] MEDS ORDERED: AZITHROMYCIN 2250 MG PO (15:33)
[2020-07-30] MEDS ORDERED: IPRAT-ALBUT 0.5-3 ML NEB (15:33)
--- NOTE | 2020-07-30 15:56 | EKG ---
[address] [place] [address] ELECTROCARDIOGRAM REPORT Name: ARBOLEDAJUAN Blake Room #: REG [facility]#: [id number] Admission: 07/30/20 Attend Phys: Discharge: Date of : 42 Report #: [id number] [facility] ED Test Date: 2020-07-30 Test Time: 12:41:44 Pat Name: JUAN ARBOLEDA Department: Room: Gender: M Web Systems Developer: : 1940 Requested By: Dutch Montgomery Order Number: [id number] MD: Jorge Drake Measurements Intervals [place] Rate: 63 P: -20 OH: 289 QRS: -124 QRSD: 189 T: -14 QT: 509 QTc: 522 Interpretive Statements Sinus rhythm 1 degree AVB Probable left atrial enlargement Right bundle branch block Compared to ECG 09/28/2019 09:03:26 Left posterior fascicular block no longer present Electronically Signed On 07-30-2020 15:55:56 CDT by Jorge Drake [email or web address] <ELECTRONICALLY SIGNED> By: Jorge Drake MD, [facility] 07/30/20 1555 1241 1241 Jorge Drake MD, FACC /EPI
[2020-07-30 16:11] VITALS: BP 152/82
== END 2020-07-30 16:11 | disposition home or self-care (01) ==
LOC: ER 12:13
PROVIDERS: Emergency Medicine
DX: J18.8 Other pneumonia, unspecified organism (principal); R60.0 Localized edema; I25.10 Atherosclerotic heart disease of native coronary artery without angina pectoris; I12.9 Hypertensive chronic kidney disease with stage 1 through stage 4 chronic kidney disease, or unspecified chronic kidney disease; E11.22 Type 2 diabetes mellitus with diabetic chronic kidney disease; N18.9 Chronic kidney disease, unspecified; Z95.1 Presence of aortocoronary bypass graft; Z79.4 Long term (current) use of insulin; Z90.89 Acquired absence of other organs; Z88.8 Allergy status to other drugs, medicaments and biological substances

== ENCOUNTER → 2020-08-04 | Outpatient (CLI) | payer OTHER ==
[~2020-08-04] MED LIST changes: +AMIODARONE HCL400 MG PO; +AZITHROMYCIN 2250 MG PO; +COMPACT COMPRE1 EACH MC; +COREG PO; +IPRAT-ALBUT 0.5-3 ML NEB; +MEDROLDOSEPACK PO; +TOUJEO SOL300 UNIT/1 SUBQ
== END ==
LOC: SJCVC 11:35
PROVIDERS: ATTEND Internal Medicine
DX: R94.31 Abnormal electrocardiogram [ECG] [EKG] (principal); I45.10 Unspecified right bundle-branch block; I25.10 Atherosclerotic heart disease of native coronary artery without angina pectoris; I25.5 Ischemic cardiomyopathy; I47.2 Ventricular tachycardia; E78.5 Hyperlipidemia, unspecified; J44.9 Chronic obstructive pulmonary disease, unspecified; E11.22 Type 2 diabetes mellitus with diabetic chronic kidney disease; I12.9 Hypertensive chronic kidney disease with stage 1 through stage 4 chronic kidney disease, or unspecified chronic kidney disease; N18.9 Chronic kidney disease, unspecified; I65.23 Occlusion and stenosis of bilateral carotid arteries; I25.2 Old myocardial infarction; G47.33 Obstructive sleep apnea (adult) (pediatric); Z95.1 Presence of aortocoronary bypass graft; Z90.49 Acquired absence of other specified parts of digestive tract; Z98.890 Other specified postprocedural states; Z95.2 Presence of prosthetic heart valve; Z88.8 Allergy status to other drugs, medicaments and biological substances; Z79.4 Long term (current) use of insulin; Z79.899 Other long term (current) drug therapy; Z87.891 Personal history of nicotine dependence; Z82.49 Family history of ischemic heart disease and other diseases of the circulatory system

== ENCOUNTER → 2020-08-17 | Outpatient (CLI) | payer OTHER | LOC: SJCVCIMAG 07:40 | PROVIDERS: ATTEND Internal Medicine | DX: I08.0 Rheumatic disorders of both mitral and aortic valves (principal); I11.9 Hypertensive heart disease without heart failure; I25.10 Atherosclerotic heart disease of native coronary artery without angina pectoris; I25.5 Ischemic cardiomyopathy; I47.2 Ventricular tachycardia; E78.5 Hyperlipidemia, unspecified; I65.23 Occlusion and stenosis of bilateral carotid arteries; J44.9 Chronic obstructive pulmonary disease, unspecified; E11.9 Type 2 diabetes mellitus without complications; I51.9 Heart disease, unspecified; R29.898 Other symptoms and signs involving the musculoskeletal system; R53.1 Weakness; R42 Dizziness and giddiness; R26.89 Other abnormalities of gait and mobility; R25.1 Tremor, unspecified; I25.2 Old myocardial infarction; G47.33 Obstructive sleep apnea (adult) (pediatric); Z95.1 Presence of aortocoronary bypass graft; Z87.891 Personal history of nicotine dependence; Z95.810 Presence of automatic (implantable) cardiac defibrillator; Z88.8 Allergy status to other drugs, medicaments and biological substances; Z79.4 Long term (current) use of insulin; Z79.899 Other long term (current) drug therapy; Z87.09 Personal history of other diseases of the respiratory system; Z95.4 Presence of other heart-valve replacement; Z95.828 Presence of other vascular implants and grafts ==

== ENCOUNTER → 2020-11-25 | Outpatient (CLI) | payer OTHER | LOC: SJCVC 10:29 | PROVIDERS: ATTEND Internal Medicine | DX: R94.31 Abnormal electrocardiogram [ECG] [EKG] (principal); I44.0 Atrioventricular block, first degree; I25.10 Atherosclerotic heart disease of native coronary artery without angina pectoris; I25.5 Ischemic cardiomyopathy; I47.2 Ventricular tachycardia; I10 Essential (primary) hypertension; E78.5 Hyperlipidemia, unspecified; I65.23 Occlusion and stenosis of bilateral carotid arteries; J44.9 Chronic obstructive pulmonary disease, unspecified; E11.9 Type 2 diabetes mellitus without complications; I48.91 Unspecified atrial fibrillation; I25.2 Old myocardial infarction; G47.33 Obstructive sleep apnea (adult) (pediatric); J18.9 Pneumonia, unspecified organism; I45.10 Unspecified right bundle-branch block; Z95.1 Presence of aortocoronary bypass graft; Z87.891 Personal history of nicotine dependence; Z88.1 Allergy status to other antibiotic agents; Z88.8 Allergy status to other drugs, medicaments and biological substances; Z79.899 Other long term (current) drug therapy; Z79.4 Long term (current) use of insulin ==

== ENCOUNTER → 2021-01-07 | Outpatient (CLI) | payer OTHER | LOC: RAD 07:17 | PROVIDERS: ATTEND Pediatrics | DX: J98.11 Atelectasis (principal); J44.9 Chronic obstructive pulmonary disease, unspecified; R06.02 Shortness of breath ==

== ENCOUNTER 2021-05-25 19:51 | Emergency (ER) | payer BC ==
[~2021-05-25] VITALS: Ht 175.3 cm; Wt 103.0 kg
[2021-05-25 20:47] LABS: HEMATOCRIT 44.5 % (42.0-52.0); HEMOGLOBIN 14.7 gm/dL (14.0-18.0); MCH 30.6 pg (26.0-34.0); MCHC 33.2 g/dL (28.0-37.0); MCV 92.2 fL (80.0-100.0); RBC 4.82 mil/uL (4.50-6.00); RDW 13.8 % (10.5-14.5); WBC 8.2 thou/uL (4.0-11.0)
[2021-05-25 20:55] LABS: CALCIUM 8.8 mg/dL (8.5-10.1); CREATININE 1.2 mg/dL (0.7-1.3); POTASSIUM 4.2 mmol/L (3.5-5.1)
[2021-05-25 21:01] LABS: ALBUMIN 3.3 g/dL (3.4-5.0); TOTAL BILIRUBIN 0.4 mg/dL (0.2-1.0); TOTAL PROTEIN 6.5 g/dL (6.4-8.2)
[2021-05-25 23:46] LABS: URINE BILIRUBIN NEGATIVE (Negative); URINE BLOOD NEGATIVE (Negative); URINE CLARITY CLEAR; URINE COLOR YELLOW; URINE GLUCOSE-RANDOM* NEGATIVE (Negative); URINE KETONES NEGATIVE (Negative); URINE LEUKOCYTES-REFLEX NEGATIVE (Negative); URINE NITRITE-REFLEX NEGATIVE (Negative); URINE PROTEIN (DIPSTICK) NEGATIVE (Negative); URINE SPECIFIC GRAVITY <= 1.005 (1.005-1.035); URINE UROBILINOGEN 0.2 E.U./dl (0.2-1.0)
[2021-05-26 01:05] VITALS: BP 128/68
== END 2021-05-26 01:00 | disposition home or self-care (01) ==
LOC: ER 19:51
PROVIDERS: Nurse Practitioner Family
DX: R10.9 Unspecified abdominal pain (principal); R11.0 Nausea; R33.9 Retention of urine, unspecified

== ENCOUNTER → 2021-05-26 | Outpatient (CLI) | payer BC | LOC: SJCVCIMAG | PROVIDERS: ATTEND Internal Medicine | DX: I08.0 Rheumatic disorders of both mitral and aortic valves (principal); I65.23 Occlusion and stenosis of bilateral carotid arteries; I42.9 Cardiomyopathy, unspecified; I25.10 Atherosclerotic heart disease of native coronary artery without angina pectoris; J44.9 Chronic obstructive pulmonary disease, unspecified; I10 Essential (primary) hypertension; E78.5 Hyperlipidemia, unspecified; G47.33 Obstructive sleep apnea (adult) (pediatric); Z95.4 Presence of other heart-valve replacement; Z95.818 Presence of other cardiac implants and grafts; Z95.810 Presence of automatic (implantable) cardiac defibrillator; Z82.49 Family history of ischemic heart disease and other diseases of the circulatory system; Z79.4 Long term (current) use of insulin; Z79.899 Other long term (current) drug therapy ==